=== PATIENT | female | born 1965 | race Caucasian/White ===

== ENCOUNTER → 2017-10-28 | Outpatient (CLI) | payer MEDICARE, OTHER ==
--- NOTE | 2017-10-28 16:11 | XR ---
EXAMINATION TYPE: XR chest 2V DATE OF EXAM: 10/28/2017 COMPARISON: Prior chest 01/17/2010 HISTORY: Preop TECHNIQUE: Frontal and lateral views of the chest are obtained. FINDINGS: There is no focal air space opacity, pleural effusion, or pneumothorax seen. The cardiac silhouette size is within normal limits. There is a mild spinal curvature. Thoracic spondylosis is present. The osseous structures are intact. IMPRESSION: No acute cardiopulmonary process.
== END | disposition home or self-care (01) ==
LOC: RADXRYALE 15:17
PROVIDERS: ATTEND Physician Assistant Medical
DX: Z01.818 Encounter for other preprocedural examination (principal)
CPT/HCPCS: 71046

== ENCOUNTER → 2018-04-15 | Outpatient (CLI) | payer MEDICARE, OTHER ==
--- NOTE | 2018-04-15 21:10 | MR ---
EXAMINATION TYPE: MR brain wo/w con DATE OF EXAM: 04/15/2018 COMPARISON: Prior MRI brain March 18, 2014 HISTORY: White matter changes, MS protocol TECHNIQUE: Multiplanar, multisequence images of the brain and brainstem is performed without and with IV contras t, utilizing 7 mL intravenous Gadavist gadolinium contrast is administered intravenously. Demyelinat ing disease protocol with additional Sagittal Flair sequence performed. FINDINGS: T2 Lesions Present : Yes Approximate Number of Lesions: Few confluent lesions in the saloni axial image 10 and confluent periven tricular parietal lesions axial image 19 Enhancing Lesion(s) Present: No T1 Hypointense Lesion(s) Present: No Change from Prior: Slightly more prominent Diffusion weighted images demonstrate no evidence of a recent infarct or other diffusion abnormality. There is no worrisome extra-axial fluid collection. The ventricular system and cisternal spaces ar e normal in size and appearance. The brain volume is age appropriate. Midline structures demonstrate normal morphology. The craniocervical junction appears within normal limits. Post contrast images demonstrate no abnormal enhancement. The dural venous sinuses appear pa tent. The visualized sinuses are clear and the globes are intact. 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 Some expected interval progression from 2013 MR I noted. No enhancing lesions are seen.
--- NOTE | 2018-04-15 21:17 | MR ---
EXAMINATION TYPE: MR lumbar spine wo con DATE OF EXAM: 04/15/2018 COMPARISON: Prior MRI lumbar spine March 13, 2016 HISTORY: Lumbago per order. Chronic low back pain into bilateral buttocks and thighs since 1984 per p atient. TECHNIQUE: Multiplanar, multisequence imaging of the lumbar spine is performed without IV contrast. FINDINGS: Sagittal images of the lumbar spine show vertebral body heights to remain satisfactory. The re is stable grade 1 retrolisthesis of L3 on L4. There are stable multilevel disc desiccation and mul tilevel disc space narrowing with relative sparing of L1-L2 and L5-S1 levels. Advanced disc space pro rowing L2-L3-L4-L5 levels is redemonstrated and sagittal images. Multilevel posterior disc herniation s involving lower thoracic and lumbar spine sparing the L5-S1 level is redemonstrated on sagittal luis ges.. The conus medullaris remain stable and low in position ending mid L2 level. No abnormal signal is noted. Heterogeneous abdominal aortic type II endplate changes are redemonstrated with moderate m ultilevel anterior spurring. Axial images at T12-L1 level shows mild to moderate broad disc bulge effacing the anterior thecal sac and mild facet degenerative changes and ligament flavum hypertrophy effacing the posterior lateral t hecal sac on axial image 32. Mild bilateral neural foraminal narrowing is redemonstrated. No signific ant change from prior. Axial images at the L1-L2 level show [id number] facet degenerative changes and ligamentum flavu m hypertrophy effacing posterior lateral thecal sac and [id number] broad disc bulge effacing th e anterior thecal sac maximum is 26. There is moderate left and mild right-sided anterior inferior ne ural foraminal narrowing. Encroachment along the anterior inferior left L1 nerve is redemonstrated. Axial images at L2-L3 level show moderate broad-based posterior disc protrusion effacing the anterior thecal sac with mild/moderate facet degenerative changes and ligamentum flavum hypertrophy effacing posterior lateral thecal sac. There is mild to moderate bilateral anterior inferior neural foraminal narrowing with encroachment on left L2 nerve identified sagittal image 4 and axial image 20. No signi ficant change from prior. Axial images at the L3-L4 level show moderate to advanced broad disc bulge effacing anterior thecal s ac with posterior spurring. There are mild facet degenerative changes bilaterally. There is advanced right and mild left-sided neural foraminal narrowing. Encroachment right L3 nerve is felt present. No significant change from prior. Axial images at L4-L5 level show moderate right greater than left facet degenerative changes bilatera lly. There is moderate to advanced broad disc bulge effacing the anterior thecal sac. There is modera te to advanced right-sided inferior neural foraminal narrowing and moderate left-sided inferior neura l foraminal narrowing. Encroachment on right L4 nerve is difficult to exclude. No significant change from prior. Axial images at L5-S1 level show advanced facet degenerative changes bilaterally. Spinal canal is pre served. Bilateral neural foramina are patent. Stable prominence of the extrahepatic biliary duct is noted. IMPRESSION: Multilevel degenerative changes in lumbar spine as detailed above. No significant change or progression from March 23, 2016 MRI study.
== END | disposition home or self-care (01) ==
LOC: RADMRIMAIN 18:05
PROVIDERS: ATTEND Psychiatry & Neurology Neurology
DX: R90.82 White matter disease, unspecified (principal); M47.816 Spondylosis without myelopathy or radiculopathy, lumbar region
CPT/HCPCS: 82565; 84520; 70553; 72148; 36415; A9585

== ENCOUNTER 2018-10-16 06:23 | Inpatient (IN) | payer MEDICARE, OTHER ==
[2018-10-16] MEDS ORDERED: METOCLOPRAMIDE 5 MG/ML 2 ML VIAL IVP STA (07:09)
[2018-10-16] MEDS ORDERED: SODIUM CHLORIDE 0.9% 2,000 ML IV STA (07:09)
[2018-10-16] MEDS ORDERED: HYDROmorphone 1 MG/ML 1 ML SYRINGE IVP STA (07:09)
[2018-10-16] MEDS ORDERED: diphenhydrAMINE 50 MG/ML 1 ML VIAL IVP STA (07:09)
[2018-10-16] MEDS ORDERED: PANTOPRAZOLE 40 MG/10 ML VIAL IVP STA (07:09)
[2018-10-16 07:26] LABS: Basophils # (A) 0.1 k/uL (0-0.2); Basophils % (A) 0 %; Eosinophils # (A) 0.1 k/uL (0-0.7); Eosinophils % (A) 0 %; HGB 15.3 gm/dL (11.4-16.0); Lymphocytes # (A) 1.6 k/uL (1.0-4.8); Lymphocytes % (A) 9 %; MCH 31.8 pg (25.0-35.0); MCHC 33.4 g/dL (31.0-37.0); MCV 95.2 fL (80.0-100.0); Mean Platelet Volume 6.9; Monocytes % (A) 5 %; Neutrophils # (A) 15.6 k/uL (1.3-7.7); Neutrophils % (A) 84 %; Platelet Count 462 k/uL (150-450); RBC 4.83 m/uL (3.80-5.40); RDW 13.2 % (11.5-15.5); WBC 18.7 k/uL (3.8-10.6)
--- NOTE | 2018-10-16 07:30 | ED ---
General Adult HPI - General Source: patient, EMS, RN notes reviewed <Gilberto Raymundo - Last Filed: 10/16/18 08:29> <Jovanny Shea - Last Filed: 10/16/18 08:38> - General Chief complaint: Nausea/Vomiting/Diarrhea Stated complaint: abd pain Time Seen by Provider: 10/16/18 07:03 - History of Present Illness Initial comments: This a 53-year-old female presents emergency department via EMS with chief complaint of abdominal pain. Patient states started last day or so she also has had associated nausea vomiting diarrhea. She states all symptoms preceded her abdominal pain. Patient is concerned that she has a history of diverticulitis with perforation and abscess formation patient states that she had surgery approximate 4 years ago. Patient states that the pain is getting worse with time on alleviated with her morphine she takes orally daily. Patient denies fever does admit to some subjective chills. Patient denies chest pain, shortness breath, headache, dizziness. Patient has no urinary symptoms including dysuria, hematuria or urinary frequency. (Gilberto Raymundo) - Related Data Home Medications Medication Instructions Recorded Confirmed Morphine Sulfate [Morphine Sulfate 30 mg PO BID 01/14/14 10/16/18 ER] Omeprazole [PriLOSEC] 20 mg PO QAM 01/14/14 10/16/18 Sertraline [Zoloft] 100 mg PO HS 05/18/14 10/16/18 Hydrochlorothiazide 25 mg PO QAM 10/31/17 10/16/18 Hyoscyamine Sulfate [Levsin] 0.125 mg SL Q4H PRN 10/31/17 10/16/18 Ondansetron [Zofran] 4 mg PO BID PRN 10/31/17 10/16/18 Morphine Sulfate ER [Ms Contin 15 mg PO BID 11/12/17 10/16/18 15Mg] Allergies Allergy/AdvReac Type Severity Reaction Status Date / Time Sulfa (Sulfonamide Allergy Rash/Hives Verified 10/16/18 07:15 Antibiotics) Review of Systems ROS Other: All systems not noted in ROS Statement are negative. <Gilberto Raymundo - Last Filed: 10/16/18 08:29> ROS Other: All systems not noted in ROS Statement are negative. <Jovanny Shea - Last Filed: 10/16/18 08:38> ROS Statement: Those systems with pertinent positive or pertinent negative responses have been documented in the HPI. Past Medical History Past Medical History: GERD/Reflux, Hyperlipidemia, Hypertension, Musculoskeletal Disorder, Osteoarthritis (OA), Skin Disorder Additional Past Medical History / Comment(s): HX OF RENAL CALCULUS. JERSON CTS. PERFORATED Diverticulitis 08/2014. Spinal Stenosis. SYSTEMIC Lupus. DDD. SORE/WOUND RT KNEE, NEW ONE RT ANKLE. History of Any Multi-Drug Resistant Organisms: None Reported Past Surgical History: Section, Orthopedic Surgery Additional Past Surgical History / Comment(s): C-S X2. RT KNEE ARTHROSCOPY. ABDOMINAL LAPROSCOPY; EMERGENCY BOWEL RESECTION, COLOSTOMY - LATER REVERSED. KIDNEY STONE REMOVAL. COLONOSCOPY. Past Anesthesia/Blood Transfusion Reactions: No Reported Reaction Past Psychological History: Anxiety Smoking Status: Current every day smoker Past Alcohol Use History: None Reported Past Drug Use History: Marijuana - Past Family History Mother Family Medical History: CVA/TIA Additional Family Medical History / Comment(s): BRAIN ANEURYSM <Gilberto Raymundo - Last Filed: 10/16/18 08:29> General Exam General appearance: alert, in no apparent distress Head exam: Present: atraumatic, normocephalic, normal inspection Eye exam: Present: normal appearance, PERRL, EOMI. Absent: scleral icterus, conjunctival injection, periorbital swelling ENT exam: Present: normal exam, mucous membranes moist Neck exam: Present: normal inspection. Absent: tenderness, meningismus, lymphadenopathy Respiratory exam: Present: normal lung sounds bilaterally. Absent: respiratory distress, wheezes, rales, rhonchi, stridor Cardiovascular Exam: Present: regular rate, normal rhythm, normal heart sounds. Absent: systolic murmur, diastolic murmur, rubs, gallop, clicks GI/Abdominal exam: Present: soft, tenderness (Epigastric to mid abdominal tenderness moderate), normal bowel sounds, other (Old surgical scars noted). Absent: distended, guarding, rebound, rigid Back exam: Absent: CVA tenderness (R), CVA tenderness (L) Skin exam: Present: warm, dry, intact, normal color. Absent: rash <Gilberto Raymundo - Last Filed: 10/16/18 08:29> Course <Jovanny Shea - Last Filed: 10/16/18 08:38> Vital Signs 10/16/18 10/16/18 06:25 08:24 Temperature 98.4 F Pulse Rate 46 L 85 Respiratory 16 16 Rate Blood Pressure 144/81 150/83 O2 Sat by Pulse 96 96 Oximetry - Reevaluation(s) Reevaluation #1: 10/16/18 08:35 PA supervision: I proceeded [id number] evaluation the patient she does demonstrate nausea vomiting History of diverticular disease. She does have elevated pancreatic enzymes consistent with pancreatitis. CAT scan was performed evidence of pancreatitis associated the head of the pancreas mass is not ruled out bilateral nono bstructive renal stones also either loosely adherent stool versus pedunculated polyp in the colon at the hepatic flexure. Please see complete report. Patient will be admitted I did discuss the case with Dr. Bell. Review the assessment and plan. (Jovanny Shea) EKG Findings - EKG Comments: EKG Findings:: EKG performed at 8:16 sinus rhythm with multiple PVCs, bigeminy, rate of 98 DE 160 QRS 84 QT /QTC 506/619 <Gilberto Raymundo - Last Filed: 10/16/18 08:29> Medical Decision Making - Lab Data Result diagrams: 10/16/18 06:28 10/16/18 06:28 <Gilberto Raymundo - Last Filed: 10/16/18 08:29> - Lab Data Result diagrams: 10/16/18 06:28 10/16/18 06:28 <Jovanny Shea - Last Filed: 10/16/18 08:38> - Medical Decision Making 53-year-old female present for abdominal pain. Patient lab work, EKG, CT of ab domen and pelvis. Patient has evidence of acute pancreatitis on CT and consistent with glass. She has no history of pancreatitis and she denies any alcohol intake. Patient will be admitted for IV fluid hydration, potassium replacement, pain control and GI consult (Gilberto Raymundo) - Lab Data Lab Results 10/16/18 10/16/18 10/16/18 Range/Units 06:28 06:28 06:28 WBC 18.7 H (3.8-10.6) k/uL RBC 4.83 (3.80-5.40) m/uL Hgb 15.3 (11.4-16.0) gm/dL Hct 46.0 (34.0-46.0) % MCV 95.2 (80.0-100.0) fL MCH 31.8 (25.0-35.0) pg MCHC 33.4 (31.0-37.0) g/dL RDW 13.2 (11.5-15.5) % Plt Count 462 H (150-450) k/uL Neutrophils % 84 % Lymphocytes % 9 % Monocytes % 5 % Eosinophils % 0 % Basophils % 0 % Neutrophils # 15.6 H (1.3-7.7) k/uL Lymphocytes # 1.6 (1.0-4.8) k/uL Monocytes # 1.0 (0-1.0) k/uL Eosinophils # 0.1 (0-0.7) k/uL Basophils # 0.1 (0-0.2) k/uL Sodium 138 (137-145) mmol/L Potassium 2.9 L (3.5-5.1) mmol/L Chloride 94 L (98-107) mmol/L Carbon Dioxide 35 H (22-30) mmol/L Anion Gap 9 mmol/L BUN 11 (7-17) mg/dL Creatinine 0.59 (0.52-1.04) mg/dL Est GFR (CKD-EPI)AfAm >90 (>60 ml/min/1.73 sqM) Est GFR (CKD-EPI)NonAf >90 (>60 ml/min/1.73 sqM) Glucose 105 H (74-99) mg/dL Plasma Lactic Acid Krishna 2.0 (0.7-2.0) mmol/L Calcium 10.6 H (8.4-10.2) mg/dL Total Bilirubin 0.8 (0.2-1.3) mg/dL AST 23 (14-36) U/L ALT 21 (9-52) U/L Alkaline Phosphatase 93 (38-126) U/L Troponin I (0.000-0.034) ng/mL Total Protein 7.1 (6.3-8.2) g/dL Albumin 4.2 (3.5-5.0) g/dL Amylase 213 H (30-110) U/L Lipase 1374 H (23-300) U/L 10/16/18 Range/Units 06:28 WBC (3.8-10.6) k/uL RBC (3.80-5.40) m/uL Hgb (11.4-16.0) gm/dL Hct (34.0-46.0) % MCV (80.0-100.0) fL MCH (25.0-35.0) pg MCHC (31.0-37.0) g/dL RDW (11.5-15.5) % Plt Count (150-450) k/uL Neutrophils % % Lymphocytes % % Monocytes % % Eosinophils % % Basophils % % Neutrophils # (1.3-7.7) k/uL Lymphocytes # (1.0-4.8) k/uL Monocytes # (0-1.0) k/uL Eosinophils # (0-0.7) k/uL Basophils # (0-0.2) k/uL Sodium (137-145) mmol/L Potassium (3.5-5.1) mmol/L Chloride (98-107) mmol/L Carbon Dioxide (22-30) mmol/L Anion Gap mmol/L BUN (7-17) mg/dL Creatinine (0.52-1.04) mg/dL Est GFR (CKD-EPI)AfAm (>60 ml/min/1.73 sqM) Est GFR (CKD-EPI)NonAf (>60 ml/min/1.73 sqM) Glucose (74-99) mg/dL Plasma Lactic Acid Krishna (0.7-2.0) mmol/L Calcium (8.4-10.2) mg/dL Total Bilirubin (0.2-1.3) mg/dL AST (14-36) U/L ALT (9-52) U/L Alkaline Phosphatase (38-126) U/L Troponin I <0.012 (0.000-0.034) ng/mL Total Protein (6.3-8.2) g/dL Albumin (3.5-5.0) g/dL Amylase (30-110) U/L Lipase (23-300) U/L Disposition <Gilberto Raymundo - Last Filed: 10/16/18 08:29> <Jovanny Shea - Last Filed: 10/16/18 08:38> Clinical Impression: Acute pancreatitis, Dehydration, Hypokalemia, Nausea & vomiting Disposition: ADMITTED IP TO THIS [facility] Condition: Fair Referrals: McPhilimy,Gilberto, DO [Primary Care Provider] - 1-2 days
[2018-10-16 07:35] LABS: ALT 21 U/L (9-52); AST 23 U/L (14-36); Albumin 4.2 g/dL (3.5-5.0); Alkaline Phosphatase 93 U/L (38-126); Amylase 213 U/L (30-110); Anion Gap 9 mmol/L; Blood Urea Nitrogen 11 mg/dL (7-17); Calcium 10.6 mg/dL (8.4-10.2); Carbon Dioxide 35 mmol/L (22-30); Chloride 94 mmol/L (98-107); Glucose 105 mg/dL (74-99); Lipase 1374 U/L (23-300); Potassium 2.9 mmol/L (3.5-5.1); Sodium 138 mmol/L (137-145); Total Bilirubin 0.8 mg/dL (0.2-1.3); Total Protein 7.1 g/dL (6.3-8.2)
--- NOTE | 2018-10-16 08:17 | CT ---
EXAMINATION TYPE: CT abdomen pelvis w con DATE OF EXAM: 10/16/2018 COMPARISON: 11/30/2015 HISTORY: 53-year-old female abdominal pain, nausea and vomiting, history of bowel resection TECHNIQUE: Contiguous axial scanning of the abdomen and pelvis following administration of 100 ml Iso samina 300 IV contrast. Delayed images through the kidneys and coronal/sagittal reconstructions perform ed. CT DLP: 583.6 mGycm Automated exposure control for dose reduction was used. FINDINGS: Heart normal size without pericardial effusion. Lung bases clear without pleural effusion. Mildly ectatic lower descending thoracic aorta at 2.6 cm. Moderate atherosclerotic calcification and plaque within the infrarenal abdominal aorta. No focal liver lesion. Similar mild prominence to the bile duct 7 mm as compared to prior exam. Portal venous system is ly nt. Similar thickening of the left adrenal gland without discrete nodularity. A couple 4 mm nonobstructin g right renal calculi and a punctate 2 mm nonobstructive right renal calculus. On the left, a couple nonobstructing 4 mm left renal calculi. Cortical defect along the upper pole vance ggests scarring as a sequela of prior infectious or vascular insult. Spleen within normal limits. There is edematous thickening of the pancreatic head with mild to moderate peripancreatic inflammatio n and edema. No peripancreatic or intrapancreatic fluid collection is seen. Edematous change causes s lightly decreased density of the pancreatic head. No dilated small bowel, free fluid, or free air. Either some loosely adherent stool material or a pedunculated polyp at the level of the hepatic flexu re, axial image 36 and coronal image 26. No significant stool burden and no pericolonic inflammatory change. Bladder partially distended. Left-sided pelvic phleboliths. Uterus and both ovaries are visualized. S uspect a phlebolith associated with the left ovary. No abnormal fluid collection in the pelvis or pel yann lymphadenopathy. Bones: Moderate to advanced degenerative changes throughout the lumbar spine. IMPRESSION: 1. Acute interstitial edematous pancreatitis centered at the pancreatic head with mild to moderate vance rrounding inflammatory edema. No evident complication. However, the edema causes decreased density of the pancreatic head. Following successful treatment and return to baseline, follow-up is recommended to exclude the possibility of an underlying pancreatic head mass. 2. Bilateral nonobstructive renal calculi measuring up to 4 mm. 3. Either some loosely adherent stool versus a pedunculated polyp within the colon at the level of th e hepatic flexure. Direct visualization recommended if routine screening has not started.
[2018-10-16] MEDS ORDERED: NALOXONE 0.4 MG/ML 1 ML VIAL IV PRN (08:31)
[2018-10-16] MEDS ORDERED: HYDROmorphone 0.5 MG/0.5 ML SYRINGE IVP PRN (08:31)
[2018-10-16] MEDS: SODIUM CHLORIDE 0.9% 1,000 ML IV SCH ×2 (09:05→16:08)
[2018-10-16] MEDS: POTASSIUM CHLORIDE 10 MEQ in WATER FOR INJECTION 1 100ML.BAG IVPB SCH ×4 (09:05→12:39)
--- NOTE | 2018-10-16 10:22 | P.CONS ---
History of Present Illness - Reason for Consult Consult date: 10/16/18 Pancreatitis Requesting physician: Anthony Bell - Chief Complaint Abdominal pain - History of Present Illness 53-year-old female with a history of IBS, lupus, shingles, colonic diverticulosis, perforated diverticulitis with resection and ostomy reversal, GERD admitted with intractable nausea vomiting upper abdominal pain intermittently x 1 week without fever chills hematemesis hematochezia or melena. Weight loss On admission patient's pancreatic enzymes were elevated lipase 1374. Amylase 213. LFTs normal. Troponin less than 0.012. No history of pancreatitis. No history of alcoholism. No recent alcohol consumption. No history of known liver or pancreatic disorders. No changes in medications travels or diet. CT abdomen no focal liver lesion. CBD 7 mm. Interstitial edematous pancreatitis centered at the pancreatic head with mild to moderate surrounding inflammatory edema. No evident complication. Pedunculated polyp within the colon at the level of the hepatic flexure direct visualization recommended if routine screening has not started. To her memory last EGD colonoscopy was in 2013 reports as normal. Review of Systems Constitutional: Denies fever, chills, sweats, weight gain, or loss. HEENT: Negative for migraines, blurred vision or loss, earaches, drainage, tinnitus, oral mucosal lesions, dysphagia, or odynophagia. CARDIAC: Negative for chest pain, arrhythmias, or palpitation. RESPIRATORY: Negative for shortness of breath, hemoptysis, cough, or sputum production. GI: See HPI for pertinent findings. : Negative for hematuria, urgency, frequency, polyuria, or dysuria. GYNc: Denies possibility of . Negative vaginal discharge. MUSCULOSKELETAL: Negative for muscle aches, swelling, arthritis, and arthralgias. NEUROLOGIC: Negative for stroke or TIA. ENDOCRINE: Negative for thyroid problems. SKIN: Negative for rash or itching. PSYCHIATRIC: Negative history for depression and anxiety Past Medical History Past Medical History: GERD/Reflux, Hyperlipidemia, Hypertension, Musculoskeletal Disorder, Osteoarthritis (OA), Skin Disorder Additional Past Medical History / Comment(s): Systemic lupus, diverticulitis with perforation/abscess and surgery, gastritis, hemorrhoids, spinal stenosis, severe DDD, chronic back and R knee pain, neuropathy bilateral feet/legs/hands, bilateral carpal tunnel syndrome, nephrolithiasis with surgery, endometriosis, sinus problems History of Any Multi-Drug Resistant Organisms: None Reported Past Surgical History: Adenoidectomy, Section, Orthopedic Surgery, Tonsillectomy Additional Past Surgical History / Comment(s): R knee arthroscopy, R shoulder arthroscopy, abdominal laparoscopy/bowel resection with colostomy later reversed, kidney stone removal, EGD, colonoscopies. Past Anesthesia/Blood Transfusion Reactions: No Reported Reaction Smoking Status: Current every day smoker - Past Family History Mother Family Medical History: CVA/TIA Additional Family Medical History / Comment(s): BRAIN ANEURYSM/hemorrhage. Mother is . Father Family Medical History: Dementia Additional Family Medical History / Comment(s): Father is . Medications and Allergies Home Medications Medication Instructions Recorded Confirmed Type Morphine Sulfate [Morphine Sulfate 30 mg PO BID 01/14/14 10/16/18 History ER] Omeprazole [PriLOSEC] 20 mg PO QAM 01/14/14 10/16/18 History Sertraline [Zoloft] 100 mg PO HS 05/18/14 10/16/18 History Hydrochlorothiazide 25 mg PO QAM 10/31/17 10/16/18 History Hyoscyamine Sulfate [Levsin] 0.125 mg SL Q4H PRN 10/31/17 10/16/18 History Ondansetron [Zofran] 4 mg PO BID PRN 10/31/17 10/16/18 History Morphine Sulfate ER [Ms Contin 15 mg PO BID 11/12/17 10/16/18 History 15Mg] Allergies Allergy/AdvReac Type Severity Reaction Status Date / Time Sulfa (Sulfonamide Allergy Rash/Hives Verified 10/16/18 07:15 Antibiotics) Physical Exam Vitals: Vital Signs Temp Pulse Pulse Resp BP BP Pulse Ox 10/16/18 10:20 97.1 F L 84 20 123/69 95 10/16/18 09:37 82 16 127/78 95 10/16/18 08:24 85 16 150/83 96 10/16/18 06:25 98.4 F 46 L 16 144/81 96 Intake and Output 10/15/18 10/16/18 10/16/18 22:59 06:59 14:59 Other: Weight 68.039 kg General appearance: The patient is alert, oriented, in no acute distress. HET: Head is normocephalic and atraumatic. Pupils are equal and reactive. Oropharynx is clear without lesions. Neck: Supple without lymphadenopathy. Trachea midline. Heart: S1 S2. Regular rate and rhythm. Lungs: No crackles or wheezes are heard. Abdomen: Soft, mild tenderness to the mid epigastrium, nondistended with bowel sounds. No peritoneal signs. No palpable organomegaly or masses. Extremities: Normal skin color and turgor. No cyanosis, rash, ulceration, clubbing, or edema. Radial and pedal pulses are 2/4 bilaterally. Neurological: No focal deficits. Strength and sensation are grossly intact. Results CBC & Chem 7: 10/17/18 08:40 10/17/18 08:40 Labs: Abnormal Lab Results - Last 24 Hours (Table) 10/16/18 10/16/18 Range/Units 06:28 06:28 WBC 18.7 H (3.8-10.6) k/uL Plt Count 462 H (150-450) k/uL Neutrophils # 15.6 H (1.3-7.7) k/uL Potassium 2.9 L (3.5-5.1) mmol/L Chloride 94 L (98-107) mmol/L Carbon Dioxide 35 H (22-30) mmol/L Glucose 105 H (74-99) mg/dL Calcium 10.6 H (8.4-10.2) mg/dL Amylase 213 H (30-110) U/L Lipase 1374 H (23-300) U/L CT scan - abdomen: report reviewed (Dr. Chavez) Assessment and Plan (1) Acute pancreatitis Narrative/Plan: 53-year-old female underlying history of lupus admitted with intractable nausea vomiting upper abdominal pain intermittently over the past week without fever chills hematemesis hematochezia melena or weight loss. CT abdomen and pelvis reported inflammatory changes around the pancreas consistent with acute pancreatitis and underlying pancreatic head mass could not be excluded. Etiology of acute pancreatitis unclear at this time. Additionally pedunculated polyp versus loosely adherent stool within the colon at the level of the hepatic flexure direct visualization recommended if routine screening has not started. Current Visit: Yes Status: Acute Code(s): K85.90 - ACUTE PANCREATITIS WI THOUT NECROSIS OR INFECTION, UNSP SNOMED Code(s): 776203613 Plan: 1. Nothing by mouth except medications ice chips popsicles. Daily monitoring of CBC CMP pancreatic enzymes. Will obtain OLKESH, IgG subclass 1-4, triglycerides, CA-19-9 and CEA requested. Last EGD colonoscopy was in 2013; inpatient versus outpatient screening not planned at this time unless clinical course warrants. 2. IV Protonix 40 mg daily. IV hydration 125 mL an hour. Will follow closely with you. Thank you for this kind referral and the opportunity to participate in the care of your patient. This consultation was discussed with Dr. Chavez. The impression and plan of care have been directed as dictated.
[2018-10-16] MEDS: HYDROmorphone 1 MG/ML 1 ML SYRINGE IVP PRN ×4 (10:29→22:00)
[2018-10-16] MEDS: ONDANSETRON 4 MG/2 ML VIAL IVP PRN ×2 (10:39→20:32)
[2018-10-16 13:05] LABS: Appearance,Urine Clear (Clear); Bilirubin,Urine Negative (Negative); Blood,Urine Negative (Negative); Color,Urine Light Yellow; Glucose,Urine (UA) Negative (Negative); Ketones,Urine Negative (Negative); Leukocyte Esterase,Urine Negative (Negative); Nitrite,Urine Negative (Negative); Protein,Urine Trace (Negative); Urobilinogen,Urine <2.0 mg/dL (<2.0)
[2018-10-16 13:31] LABS: Specific Gravity,Urine >1.050 (1.001-1.035)
--- NOTE | 2018-10-16 14:29 | P.HPIM ---
History of Present Illness 53-year-old female came in with epigastric abdominal pain nausea vomiting multiple episodes patient has elevated lipase patient has severe epigastric abdominal pain I believe patient has much less pain tolerance patient is on Dilaudid at this time. Patient uses MS Contin at home for pain. Appears to have chronic pain issues. Patient denied any alcohol abuse, no gallstones were visualized on the CAT scan. Patient lipase is minimally elevated about 3 times normal LFTs within normal limits. Patient does have hypokalemia mostly secondary to hydrochlorothiazide contribution from nausea vomiting. CAT scan of the abdomen did show edematous pancreatitis. Patient denied any fever chills patient denied any suprapubic pain. Dysuria. Review of Systems REVIEW OF SYSTEMS: CONSTITUTIONAL: No fever, no malaise, no fatigue. HEENT: No recent visual problems or hearing problems. Denied any sore throat. CARDIOVASCULAR: No chest pain, orthopnea, PND, no palpitations, no syncope. PULMONARY: No shortness of breath, no cough, no hemoptysis. GASTROINTESTINAL: As mentioned in HPI NEUROLOGICAL: No headaches, no weakness, no numbness. HEMATOLOGICAL: Denies any bleeding or petechiae. GENITOURINARY: Denies any burning micturition, frequency, or urgency. MUSCULOSKELETAL/RHEUMATOLOGICAL: Denies any joint pain, swelling, or any muscle pain. ENDOCRINE: Denies any polyuria or polydipsia. The rest of the 14-point review of systems is negative. Past Medical History Past Medical History: GERD/Reflux, Hyperlipidemia, Hypertension, Musculoskeletal Disorder, Osteoarthritis (OA), Skin Disorder Additional Past Medical History / Comment(s): Systemic lupus, diverticulitis with perforation/abscess and surgery, gastritis, hemorrhoids, spinal stenosis, severe DDD, chronic back and R knee pain, neuropathy bilateral feet/legs/hands, bilateral carpal tunnel syndrome, nephrolithiasis with surgery, endometriosis, sinus problems History of Any Multi-Drug Resistant Organisms: None Reported Past Surgical History: Adenoidectomy, Section, Orthopedic Surgery, Tonsillectomy Additional Past Surgical History / Comment(s): R knee arthroscopy, R shoulder arthroscopy, abdominal laparoscopy/bowel resection with colostomy later reversed, kidney stone removal, EGD, colonoscopies. Past Anesthesia/Blood Transfusion Reactions: No Reported Reaction Smoking Status: Current every day smoker - Past Family History Mother Family Medical History: CVA/TIA Additional Family Medical History / Comment(s): BRAIN ANEURYSM/hemorrhage. Mother is . Father Family Medical History: Dementia Additional Family Medical History / Comment(s): Father is . Medications and Allergies Home Medications Medication Instructions Recorded Confirmed Type Morphine Sulfate [Morphine Sulfate 30 mg PO BID 01/14/14 10/16/18 History ER] Omeprazole [PriLOSEC] 20 mg PO QAM 01/14/14 10/16/18 History Sertraline [Zoloft] 100 mg PO HS 05/18/14 10/16/18 History Hydrochlorothiazide 25 mg PO QAM 10/31/17 10/16/18 History Hyoscyamine Sulfate [Levsin] 0.125 mg SL Q4H PRN 10/31/17 10/16/18 History Ondansetron [Zofran] 4 mg PO BID PRN 10/31/17 10/16/18 History Morphine Sulfate ER [Ms Contin 15 mg PO BID 11/12/17 10/16/18 History 15Mg] Allergies Allergy/AdvReac Type Severity Reaction Status Date / Time Sulfa (Sulfonamide Allergy Rash/Hives Verified 10/16/18 07:15 Antibiotics) Physical Exam Vitals: Vital Signs Temp Pulse Pulse Resp BP BP Pulse Ox 10/16/18 10:20 97.1 F L 84 20 123/69 95 10/16/18 09:37 82 16 127/78 95 10/16/18 08:24 85 16 150/83 96 10/16/18 06:25 98.4 F 46 L 16 144/81 96 Intake and Output 10/15/18 10/16/18 10/16/18 22:59 06:59 14:59 Other: Voiding Method Toilet Weight 68.039 kg PHYSICAL EXAMINATION: GENERAL: The patient is alert and oriented x3, not in any acute distress. Well developed, well nourished. HEENT: Pupils are round and equally reacting to light. EOMI. No scleral icterus. No conjunctival pallor. Normocephalic, atraumatic. No pharyngeal erythema. No thyromegaly. CARDIOVASCULAR: S1 and S2 present. No murmurs, rubs, or gallops. PULMONARY: Chest is clear to auscultation, no wheezing or crackles. ABDOMEN: Soft, some subjective tenderness and epigastric area nondistended, normoactive bowel sounds. No palpable organomegaly. MUSCULOSKELETAL: No joint swelling or deformity. EXTREMITIES: No cyanosis, clubbing, or pedal edema. NEUROLOGICAL: Gross neurological examination did not reveal any focal deficits. SKIN: No rashes. Results CBC & Chem 7: 10/16/18 06:28 10/16/18 06:28 Labs: Abnormal Lab Results - Last 24 Hours (Table) 10/16/18 10/16/18 10/16/18 Range/Units 06:28 06:28 12:40 WBC 18.7 H (3.8-10.6) k/uL Plt Count 462 H (150-450) k/uL Neutrophils # 15.6 H (1.3-7.7) k/uL Potassium 2.9 L (3.5-5.1) mmol/L Chloride 94 L (98-107) mmol/L Carbon Dioxide 35 H (22-30) mmol/L Glucose 105 H (74-99) mg/dL Calcium 10.6 H (8.4-10.2) mg/dL Amylase 213 H (30-110) U/L Lipase 1374 H (23-300) U/L Ur Specific [place] >1.050 H (1.001-1.035) Urine Protein Trace H (Negative) Thrombosis Risk Factor Assmnt - Choose All That Apply Any of the Below Risk Factors Present?: Yes Each Factor Represents 1 point: Age 41-60 years Other Risk Factors: No Other congenital or acquired thrombophilia - If yes, enter type in comment: No Thrombosis Risk Factor Assessment Total Risk Factor Score: 1 Thrombosis Risk Factor Assessment Level: Low Risk Assessment and Plan Plan: Acute pancreatitis possibly idiopathic, triglyceride level is being obtained as well. Continue with IV fluids patient will remain nothing by mouth -Gastroesophageal reflux disease continue Protonix -Hyperlipidemia Hypertension -History of lupus in the past because of which patient is undergoing autoimmune workup this workup may not be much beneficial here in the hospital -Anxiety and depression -Nicotine abuse: Counseling was provided patient continues to smoke 1.5 pack per day -DVT prophylaxis early ambulation
[2018-10-16 15:25] VITALS: BMI 25.0
[2018-10-16] MEDS: SERTRALINE 100 MG TAB PO SCH (20:27)
[2018-10-17] MEDS: SODIUM CHLORIDE 0.9% 1,000 ML IV SCH ×3 (02:18→16:59)
[2018-10-17] MEDS: HYDROmorphone 1 MG/ML 1 ML SYRINGE IVP PRN ×3 (02:19→12:00)
[2018-10-17] MEDS: ONDANSETRON 4 MG/2 ML VIAL IVP PRN ×2 (04:38→22:24)
[2018-10-17] MEDS ORDERED: PANTOPRAZOLE 40 MG/10 ML VIAL IV SCH (09:00)
[2018-10-17] MEDS ORDERED: HYDROCHLOROTHIAZIDE 25 MG TAB PO SCH (09:00)
[2018-10-17] MEDS ORDERED: NON-FORMULARY DRUG (Omeprazole [Prilosec] 20 MG) PO SCH (09:00)
[2018-10-17 10:03] LABS: HCT 36.8 % (34.0-46.0); MCH 31.2 pg (25.0-35.0); MCHC 32.4 g/dL (31.0-37.0); MCV 96.4 fL (80.0-100.0); Platelet Count 330 k/uL (150-450); RBC 3.82 m/uL (3.80-5.40); RDW 13.9 % (11.5-15.5); WBC 12.6 k/uL (3.8-10.6)
[2018-10-17 10:05] LABS: ALT 22 U/L (9-52); AST 31 U/L (14-36); Albumin 2.9 g/dL (3.5-5.0); Alkaline Phosphatase 69 U/L (38-126); Anion Gap 5 mmol/L; Blood Urea Nitrogen 6 mg/dL (7-17); Calcium 8.8 mg/dL (8.4-10.2); Carbon Dioxide 30 mmol/L (22-30); Chloride 105 mmol/L (98-107); Glucose 77 mg/dL (74-99); Lipase 1852 U/L (23-300); Sodium 140 mmol/L (137-145); Total Bilirubin 0.6 mg/dL (0.2-1.3); Total Protein 5.1 g/dL (6.3-8.2)
[2018-10-17 10:06] LABS: HGB 11.9 gm/dL (11.4-16.0)
[2018-10-17] MEDS ORDERED: Potassium Replacement Protocol 1 EACH MISC MISCELLANE PRN ×2 (11:17→11:18)
[2018-10-17] MEDS ORDERED: POTASSIUM CHLORIDE 10 MEQ in WATER FOR INJECTION 1 100ML.BAG IVPB SCH (11:30)
[2018-10-17] MEDS: POTASSIUM CHLORIDE ER 20 MEQ TAB.ER PO SCH ×2 (11:54→12:47)
[2018-10-17 12:42] LABS: ANA Pattern Speckled
--- NOTE | 2018-10-17 13:42 | P.PN ---
Subjective Progress Note Date: 10/17/18 Principal diagnosis: Pancreatitis LOKESH positive titer 1:80 speckled pattern. Lipase increase 1852 but reports improvement in abdominal pain. LFTs normal. Triglycerides 96. Afebrile. Passing flatus. Objective - Vital Signs Vital signs: Vital Signs Temp 97.9 F 10/17/18 05:00 Pulse 73 10/17/18 05:00 Resp 20 10/17/18 08:00 BP 116/79 10/17/18 05:00 Pulse Ox 95 10/17/18 05:00 Intake & Output 10/16/18 10/17/18 10/17/18 18:59 06:59 18:59 Intake Total 0 Balance 0 Weight 68.039 kg Intake: Oral 0 Other: Voiding Method Toilet Toilet # Voids 1 1 - Exam General appearance: The patient is alert, oriented, in no acute distress. HET: Head is normocephalic and atraumatic. Pupils are equal and reactive. Or opharynx is clear without lesions. Neck: Supple without lymphadenopathy. Trachea midline. Heart: S1 S2. Regular rate and rhythm. Lungs: No crackles or wheezes are heard. Abdomen: Soft, mild tender midepigastric left upper abdomen, nondistended with bowel sounds. No peritoneal signs. No palpable organomegaly or masses. Extremities: Normal skin color and turgor. No cyanosis, rash, ulceration, clubbing, or edema. Radial and pedal pulses are 2/4 bilaterally. Neurological: No focal deficits. Strength and sensation are grossly intact. - Labs CBC & Chem 7: 10/17/18 08:40 10/17/18 08:40 Labs: Abnormal Lab Results - Last 24 Hours (Table) 10/16/18 10/16/18 10/17/18 Range/Units 06:28 12:40 08:40 WBC (3.8-10.6) k/uL Potassium 3.0 L (3.5-5.1) mmol/L BUN 6 L (7-17) mg/dL Total Protein 5.1 L (6.3-8.2) g/dL Albumin 2.9 L (3.5-5.0) g/dL Lipase 1852 H (23-300) U/L Ur Specific [place] >1.050 H (1.001-1.035) LOKESH Screen POSITIVE H (NEGATIVE) 10/17/18 Range/Units 08:40 WBC 12.6 H (3.8-10.6) k/uL Potassium (3.5-5.1) mmol/L BUN (7-17) mg/dL Total Protein (6.3-8.2) g/dL Albumin (3.5-5.0) g/dL Lipase (23-300) U/L Ur Specific [place] (1.001-1.035) LOKESH Screen (NEGATIVE) Assessment and Plan (1) Acute pancreatitis Narrative/Plan: 53-year-old female underlying history of lupus admitted with intractable nausea vomiting upper abdominal pain intermittently over the past week without fever chills hematemesis hematochezia melena or weight loss. CT abdomen and pelvis reported inflammatory changes around the pancreas consistent with acute pancr eatitis and underlying pancreatic head mass could not be excluded. Etiology of acute pancreatitis unclear at this time. Additionally pedunculated polyp versus loosely adherent stool within the colon at the level of the hepatic flexure direct visualization recommended if routine screening has not started. Current Visit: Yes Status: Acute Code(s): K85.90 - ACUTE PANCREATITIS WITHOUT NECROSIS OR INFECTION, UNSP SNOMED Code(s): 378858003 Plan: 1. Low fat diet. Daily monitoring of CBC CMP pancreatic enzymes. CA-19-9 and CEA requested and pending. Last EGD colonoscopy was in 2013; inpatient screening not planned at this time, outpatient screening discussed. Appointment w/ Dr. Braxton 10 days. 2. IV Protonix 40 mg daily. IV hydration 125 mL an hour. Will follow closely with you. Assessment and plan a care discussed with Dr. Chavez
--- NOTE | 2018-10-17 14:06 | P.PN ---
Subjective 53-year-old female was admitted for etiology for the pancreatitis or autoimmune pancreatitis patient's pain is positive although this is a nonspecific test.patient's lipase went up but had abdominal pain nausea improves patient was started on diet advance as tolerated. CA-19-9 is pending patient will undergo endoscopic ultrasound and possibility of pancreatic head as an outpatient. Constitutional: Denied any fatigue denied any fever. Cardio vascular: denied any chest pain, palpitations Gastrointestinal denied any nausea vomiting Pulmonary: Denied any shortness of breath cough Neurologic denied any new focal deficits All inpatient medications were reviewed and appropriate changes in these medications as dictated in the interval history and assessment and plan. Objective - Vital Signs Vital signs: Vital Signs Temp 97.9 F 10/17/18 05:00 Pulse 73 10/17/18 05:00 Resp 20 10/17/18 08:00 BP 116/79 10/17/18 05:00 Pulse Ox 95 10/17/18 05:00 Intake & Output 10/16/18 10/17/18 10/17/18 18:59 06:59 18:59 Intake Total 0 Balance 0 Weight 68.039 kg Intake: Oral 0 Other: Voiding Method Toilet Toilet # Voids 1 1 - Exam PHYSICAL EXAMINATION: GENERAL: The patient is alert and oriented x3, not in any acute distress. Well developed, well nourished. HEENT: Pupils are round and equally reacting to light. EOMI. No scleral icterus. No conjunctival pallor. Normocephalic, atraumatic. No pharyngeal erythema. No thyromegaly. CARDIOVASCULAR: S1 and S2 present. No murmurs, rubs, or gallops. PULMONARY: Chest is clear to auscultation, no wheezing or crackles. ABDOMEN: Soft, nontender, nondistended, normoactive bowel sounds. No palpable organomegaly. MUSCULOSKELETAL: No joint swelling or deformity. EXTREMITIES: No cyanosis, clubbing, or pedal edema. NEUROLOGICAL: Gross neurological examination did not reveal any focal deficits. SKIN: No rashes. - Labs CBC & Chem 7: 10/17/18 08:40 10/17/18 08:40 Labs: Abnormal Lab Results - Last 24 Hours (Table) 10/16/18 10/17/18 10/17/18 Range/Units 06:28 08:40 08:40 WBC 12.6 H (3.8-10.6) k/uL Potassium 3.0 L (3.5-5.1) mmol/L BUN 6 L (7-17) mg/dL Total Protein 5.1 L (6.3-8.2) g/dL Albumin 2.9 L (3.5-5.0) g/dL Lipase 1852 H (23-300) U/L IgG2 106.0 L (169.0-640.0) mg/dL LOKESH Screen POSITIVE H (NEGATIVE) Assessment and Plan Plan: Acute pancreatitis possibly idiopathic,are autoimmune in a positive as mentioned above Continue with IV fluids patient will rwill be started on diet and advance as tolerated -Gastroesophageal reflux disease continue Protonix -Hyperlipidemia Hypertension -History of lupus in the past because of which patient is undergoing autoimmune workup this workup may not be much beneficial here in the hospital -Anxiety and depression -Nicotine abuse: Counseling was provided patient continues to smoke 1.5 pack per day -DVT prophylaxis early ambulation
[2018-10-17] MEDS: HYDROcodone/APAP 7.5-325MG 1 EACH TAB PO PRN ×2 (17:00→22:24)
[2018-10-17] MEDS: SERTRALINE 100 MG TAB PO SCH (20:31)
[2018-10-17] MEDS ORDERED: ALPRAZolam 0.25 MG TAB PO STA (21:37)
[2018-10-17] MEDS: NICOTINE 21MG/24HR PATCH TRANSDERM SCH (21:53)
[2018-10-18] MEDS: SODIUM CHLORIDE 0.9% 1,000 ML IV SCH ×2 (02:00→10:47)
[2018-10-18] MEDS: HYDROcodone/APAP 7.5-325MG 1 EACH TAB PO PRN ×3 (05:07→15:45)
[2018-10-18] MEDS ORDERED: PANTOPRAZOLE 40 MG TABLET PO SCH (07:30)
[2018-10-18 08:13] LABS: Basophils # (A) 0.1 k/uL (0-0.2); Basophils % (A) 1 %; Eosinophils # (A) 0.2 k/uL (0-0.7); Eosinophils % (A) 3 %; HCT 36.1 % (34.0-46.0); Lymphocytes # (A) 1.7 k/uL (1.0-4.8); Lymphocytes % (A) 19 %; MCH 32.2 pg (25.0-35.0); MCHC 33.4 g/dL (31.0-37.0); MCV 96.5 fL (80.0-100.0); Monocytes # (A) 0.5 k/uL (0-1.0); Monocytes % (A) 5 %; Neutrophils # (A) 6.3 k/uL (1.3-7.7); Neutrophils % (A) 70 %; Platelet Count 312 k/uL (150-450); RBC 3.74 m/uL (3.80-5.40); RDW 13.4 % (11.5-15.5)
[2018-10-18 08:26] LABS: Anion Gap 3 mmol/L; Blood Urea Nitrogen 5 mg/dL (7-17); Calcium 8.9 mg/dL (8.4-10.2); Carbon Dioxide 32 mmol/L (22-30); Chloride 105 mmol/L (98-107); Glucose 83 mg/dL (74-99); Lipase 870 U/L (23-300); Potassium 3.1 mmol/L (3.5-5.1); Sodium 140 mmol/L (137-145)
[2018-10-18] MEDS: ONDANSETRON 4 MG/2 ML VIAL IVP PRN (10:09)
[2018-10-18] MEDS: NICOTINE 21MG/24HR PATCH TRANSDERM SCH (10:09)
[2018-10-18] MEDS ORDERED: Potassium Replacement Protocol 1 EACH MISC MISCELLANE PRN ×2 (10:12→14:15)
[2018-10-18] MEDS: POTASSIUM CHLORIDE ER 20 MEQ TAB.ER PO SCH ×4 (10:47→18:28)
[2018-10-18 12:09] VITALS: BP 139/76; PULSE 68; RESP 17; TEMP 98.3
--- NOTE | 2018-10-18 13:28 | PN ---
PROGRESS NOTE DATE OF SERVICE: 10/18/2018 REASON FOR CONSULTATION: Acute pancreatitis. The patient is a 53-year-old pleasant white female admitted to hospital with acute onset of epigastric pain associated with nausea, vomiting of 2 days duration. She was noted to have elevated amylase and lipase consistent with acute pancreatitis. This morning, she is feeling better. The epigastric pain has resolved. She still has decreased appetite. She is on a soft diet, tolerating well. Presently on [place] as needed. Never had prior history of pancreatitis. She did have a CT of the abdomen and pelvis done in the emergency room, which showed changes in the pancreas consistent with acute pancreatitis. PHYSICAL EXAMINATION: On physical examination, she appears comfortable in no apparent distress. Vital signs are stable. Blood pressure is 132/79, pulse rate 68, temperature 98.3. HEENT examination unremarkable. Conjunctivae pink. Sclerae anicteric. Oral cavity no lesions. NECK: No JVD or lymph node enlargement. Chest was clear to auscultation. HEART: Regular rate and rhythm. ABDOMEN: Soft. There was very minimal tenderness in the epigastric area. Bowel sounds are positive. No organomegaly. EXTREMITIES: No pedal edema. SKIN: No rashes. NEUROLOGIC: Alert and oriented x3. No focal deficits. LABS: Labs done at the time of admission to the hospital: Amylase was 213 and lipase is 1374. Today, lipase is down to 870. Serum IgG4 levels are normal. Fasting triglycerides 96. Serum calcium normal. IMPRESSION: Acute pancreatitis, first episode, gradually improving. Etiology remains unclear. CT of the abdomen showed changes in the pancreatic head consistent with acute pancreatitis, possibility of underlying lesion cannot be excluded. She has no history of alcohol abuse. As mentioned above, her serum fasting triglycerides and IgG4 levels are within normal limits. RECOMMENDATIONS: 1. Advance diet as tolerated. 2. Continue with pain medications as needed. 3. The patient was advised to follow up in the office in one to two weeks following discharge from the hospital for further workup including endoscopic ultrasound of the pancreas to investigate the etiology of pancreatitis. The plan was discussed with the patient. She is agreeable to it. Thank you for this consultation. MMODL / IJN: [id number] /
--- NOTE | 2018-10-18 15:11 | P.DS ---
Providers Date of admission: 10/16/18 08:31 Attending physician: Anthony Bell MD Consults: 10/16/18 08:31 Consult Physician Stat Consulting Provider: Jonathon Braxton Consult Reason/Comments: Acute pancreatitis Do you want consulting provider notified?: Yes Primary care physician: Gilberto [facility] Hospital Course: 53-year-old female was admitted for etiology for the pancreatitis or autoimmune pancreatitis patient's pain is positive although this is a nonspecific test.patient's lipase went up but had abdominal pain nausea improves patient was started on diet advance as tolerated. CA-19-9 is pending patient will undergo endoscopic ultrasound and possibility of pancreatic head as an outpatient. 10/18/2018 patient's abdominal pain improved and patient is able to tolerate diet well patient is cleared for discharge from my gastro-oncology perspective. Patient is bit hyponatremic secondary to IV fluids and natriuretic hypokalemia which is expected to improve with disc herniation of IV fluids. On admission patient's potassium was low which is secondary to hydrocodone thiazide which is being discontinued upon discharge. Patient's diarrhea I believe is secondary to not being on hyoscyamine which she was using at home and patient was switched to [place] for morphine which is much stronger than hydrocodone and withdrawal from this morphine is making her to have diarrhea also will obtain C. diff testing that's negative patient will be discharged today. PHYSICAL EXAMINATION: GENERAL: The patient is alert and oriented x3, not in any acute distress. Well developed, well nourished. HEENT: Pupils are round and equally reacting to light. EOMI. No scleral icterus. No conjunctival pallor. Normocephalic, atraumatic. No pharyngeal erythema. No thyromegaly. CARDIOVASCULAR: S1 and S2 present. No murmurs, rubs, or gallops. PULMONARY: Chest is clear to auscultation, no wheezing or crackles. ABDOMEN: Soft, nontender, nondistended, normoactive bowel sounds. No palpable organomegaly. MUSCULOSKELETAL: No joint swelling or deformity. EXTREMITIES: No cyanosis, clubbing, or pedal edema. NEUROLOGICAL: Gross neurological examination did not reveal any focal deficits. SKIN: No rashes. Assessment and Plan Plan: Acute pancreatitis possibly idiopathic,approved Diarrhea secondary to above-mentioned reasons -Gastroesophageal reflux disease continue Protonix -Hyperlipidemia Hypertension -History of lupus in the past -Anxiety and depression -Nicotine abuse: Counseling was provided patient continues to smoke 1.5 pack per day Patient Condition at Discharge: Fair Plan - Discharge Summary Discharge Rx Participant: No New Discharge Prescriptions: Discontinued Hydrochlorothiazide 25 mg PO QAM No Action Omeprazole [PriLOSEC] 20 mg PO QAM Morphine Sulfate [Morphine Sulfate ER] 30 mg PO BID Sertraline [Zoloft] 100 mg PO HS Ondansetron [Zofran] 4 mg PO BID PRN PRN Reason: Nausea Hyoscyamine Sulfate [Levsin] 0.125 mg SL Q4H PRN PRN Reason: Spasms Morphine Sulfate ER [Ms Contin 15Mg] 15 mg PO BID Discharge Medication List Morphine Sulfate [Morphine Sulfate ER] 30 mg PO BID 01/14/14 [History] Omeprazole [PriLOSEC] 20 mg PO QAM 01/14/14 [History] Sertraline [Zoloft] 100 mg PO HS 05/18/14 [History] Hyoscyamine Sulfate [Levsin] 0.125 mg SL Q4H PRN 10/31/17 [History] Ondansetron [Zofran] 4 mg PO BID PRN 10/31/17 [History] Morphine Sulfate ER [Ms Contin 15Mg] 15 mg PO BID 11/12/17 [History] Follow up Appointment(s)/Referral(s): Jonathon Braxton MD [STAFF PHYSICIAN] - 10/30/18 2:15 pm Gilberto Arreguin DO [Primary Care Provider] - 3 Days Patient Instructions/Handouts: Pancreatitis (DC) Activity/Diet/Wound Care/Special Instructions: Regular bland diet. Activity as tolerated, fall precautions. NO smoking, cessation information given. Discharge Disposition: HOME SELF-CARE
== END 2018-10-18 18:30 | disposition home or self-care (01) | DRG 439 ==
LOC: EC 06:23 → 4MS4W 08:31 → 3NMEDONC 10-17 17:09
PROVIDERS: ADMIT Internal Medicine; ATTEND Internal Medicine
DX: K85.00 Idiopathic acute pancreatitis without necrosis or infection (principal); K52.1 Toxic gastroenteritis and colitis; E87.1 Hypo-osmolality and hyponatremia; T40.2X5A Adverse effect of other opioids, initial encounter; E87.6 Hypokalemia; E86.0 Dehydration; E78.5 Hyperlipidemia, unspecified; K21.9 Gastro-esophageal reflux disease without esophagitis; I10 Essential (primary) hypertension; M19.90 Unspecified osteoarthritis, unspecified site; F41.9 Anxiety disorder, unspecified; G89.29 Other chronic pain; M32.9 Systemic lupus erythematosus, unspecified; F32.9 Major depressive disorder, single episode, unspecified; F17.210 Nicotine dependence, cigarettes, uncomplicated; T50.2X5A Adverse effect of carbonic-anhydrase inhibitors, benzothiadiazides and other diuretics, initial encounter; Z88.2 Allergy status to sulfonamides; Z87.442 Personal history of urinary calculi; Z93.3 Colostomy status; Z82.49 Family history of ischemic heart disease and other diseases of the circulatory system; Z98.891 History of uterine scar from previous surgery; Z90.49 Acquired absence of other specified parts of digestive tract; Z87.42 Personal history of other diseases of the female genital tract
CPT/HCPCS: 36415; 74177; 80048; 80053; 81003; 82150; 82378; 82787; 83605; 83690; 83735; 84132; 84478; 84484; 85025; 85027; 86038; 86039; 86301; 93005; 96361; 96365; 96375; 99285

== ENCOUNTER → 2018-12-12 | Outpatient (CLI) | payer MEDICARE, OTHER ==
--- NOTE | 2018-12-12 19:31 | CT ---
EXAMINATION TYPE: CT abdomen w con DATE OF EXAM: 12/12/2018 COMPARISON: 10/16/2018 HISTORY: f/u pancreatitis CT DLP: 623 mGycm Automated exposure control for dose reduction was used. TECHNIQUE: Helical acquisition of images was performed from the lung bases through the top of iliac crest to include entire abdomen. CONTRAST: Performed with Oral Contrast and with IV Contrast, patient injected with 100 mL of Isovue 300. FINDINGS: LUNG BASES: No significant abnormality is appreciated. LIVER/GB: No significant abnormality is appreciated. PANCREAS: No significant abnormality is seen. SPLEEN: No significant abnormality is seen. ADRENALS: No significant abnormality is seen. KIDNEYS: There are 3 less than 5 mm renal calculi in the left and 2 less than 5 mm renal calculi in t he right. No hydronephrosis. Subcentimeter hypodensity involving the right kidney is stable most like ly related to simple cyst. BOWEL: No significant abnormality is seen. LYMPH NODES: No significant abnormality is seen. OSSEOUS STRUCTURES: Hypertrophic and degenerative change of the vertebral column. Severe multilevel degenerative disc disease noted with facet arthropathy. Multilevel foraminal encroachment suspected. Suspect canal stenosis central disc bulge L3-4 and L4-L5. OTHER: Atherosclerotic changes aorta. No evidence of aneurysm. IMPRESSION: INTERVAL RESOLUTION OF FINDINGS COMPATIBLE WITH PREVIOUS PANCREATITIS. BILATERAL NONOBSTRUCTING RENAL CALCULI.
== END | disposition home or self-care (01) ==
LOC: RADCTMAIN 16:59
DX: N20.0 Calculus of kidney (principal)
CPT/HCPCS: 74160; Q9967

== ENCOUNTER 2019-08-12 11:40 | Day surgery (SDC) | payer MEDICARE, OTHER ==
[2019-08-10 13:22] VITALS: BMI 25.2
[~2019-08-12 11:40] MED LIST: LACTATED RINGERS 1,000 ML IV SCH
[2019-08-12 11:59] VITALS: TEMP 98.1
[2019-08-12] MEDS ORDERED: ONDANSETRON 4 MG/2 ML VIAL ONE (12:38)
[2019-08-12] MEDS ORDERED: LIDOCAINE 1% INJ 10MG/ML (20 ML MDV) ONE (12:38)
[2019-08-12] MEDS ORDERED: PROPOFOL 10 MG/ML 20 ML VIAL IV ONE (12:38)
--- NOTE | 2019-08-12 12:52 | P.PCN ---
Date of Procedure: 08/12/19 Procedure(s) Performed: Brief history: Patient is a pleasant scheduled for an elective upper endoscopy as well as colonoscopy as a part of evaluation of chronic persistent nausea, change in bowel habits and abdominal pain for the last several years duration. Procedure performed: Esophagogastroduodenoscopy with biopsy Colonoscopy with snare polypectomy Preoperative diagnosis: Chronic persistent nausea/abdominal pain Change in bowel habits Anesthesia: MAC Procedure: After informed consent was obtained from the patient was brought into the endoscopy unit and IV sedation was administered by anesthesia under continuous monitoring. Initially upper endoscopy was done. The Olympus GF 160 video endos cope was inserted inserted into the mouth and esophagus intubated without any difficulty and was gradually advanced into the stomach and duodenum and carefully examined. Biopsies were done from the second part of the duodenum. The bulb and second part of the duodenum appeared normal. The scope was then withdrawn into the stomach adequately insufflated with air and upon careful examination the antrum had mild gastritis and biopsies were done from this area. Thed body, cardia and fundus appeared normal. The scope was then withdrawn into the esophagus. small sliding hiatal hernia noted The GE junction was located at 40 cm to the incisors. It appeared regular with no erythema erosions or ulcerations. Rest of the esophagus appeared normal. Patient tolerated the procedure well. At this time the patient continued to remain sedation. Initial digital rectal examination was normal. Olympus CF 160 video colonoscope was then inserted into the rectum and gradually advanced to the cecum without any difficulty. Careful examination was performed as the scope was gradually being withdrawn. The prep was excellent. The cecum, appeared normal. In the ascending colon there was a 1 cm polyp that was removed by snare polypectomy. Rest of the ascending colon, transverse colon, descending colon, and rectum appeared normal. there was evidence of sigmoid colectomy with the anastomosis at 20 cm from the anal was there appeared normal. Retroflexion was performed in the rectum and no lesions were noted. Patient tolerated the procedure well. Impression: 1.Upper endoscopy revealed small sliding type hiatal hernia and mild antral gastritis 2.Colonoscopy revealed 1 cm ascending colon polyp status post-polypectomy Recommendations Findings of this examination were discussed with the patient as well as her family. She was advised to follow with the biopsy results. She'll be seen in office in 2 weeks. If the biopsy the colon polyp reveals adenoma she can have a repeat colonoscopy in 3-5 years
[2019-08-12 13:33] VITALS: BP 130/80; PULSE 87; RESP 18
== END 2019-08-12 13:50 | disposition home or self-care (01) ==
LOC: ORWHC2ENDO 11:40
PROVIDERS: ATTEND Internal Medicine Gastroenterology
DX: K31.9 Disease of stomach and duodenum, unspecified (principal); D12.2 Benign neoplasm of ascending colon; K29.70 Gastritis, unspecified, without bleeding; K44.9 Diaphragmatic hernia without obstruction or gangrene; K21.9 Gastro-esophageal reflux disease without esophagitis; K58.9 Irritable bowel syndrome, unspecified; M51.9 Unspecified thoracic, thoracolumbar and lumbosacral intervertebral disc disorder; M19.90 Unspecified osteoarthritis, unspecified site; M32.9 Systemic lupus erythematosus, unspecified; Z98.0 Intestinal bypass and anastomosis status; K57.90 Diverticulosis of intestine, part unspecified, without perforation or abscess without bleeding; Z88.2 Allergy status to sulfonamides; Z97.2 Presence of dental prosthetic device (complete) (partial); Z87.442 Personal history of urinary calculi; Z79.899 Other long term (current) drug therapy; Z79.891 Long term (current) use of opiate analgesic; Z79.82 Long term (current) use of aspirin
CPT/HCPCS: 88305; 45385; 43239; J2405; J2001; J2704

== ENCOUNTER → 2020-01-15 | Outpatient (CLI) | payer MEDICARE, OTHER | END | disposition home or self-care (01) | LOC: LABWHC1 12:40 | PROVIDERS: ATTEND Orthopaedic Surgery | DX: Z01.812 Encounter for preprocedural laboratory examination (principal) | CPT/HCPCS: 87070 ==

== ENCOUNTER → 2020-01-15 | Outpatient (CLI) | payer MEDICARE, OTHER ==
--- NOTE | 2020-01-15 12:46 | XR ---
EXAMINATION TYPE: XR chest 2V DATE OF EXAM: 01/15/2020 COMPARISON: 10/28/2017 TECHNIQUE: PA and lateral views submitted. HISTORY: Preop FINDINGS: The lungs are clear and there is no pneumothorax, pleural effusion, or focal pneumonia. Hypertrophi c and degenerative change spine. IMPRESSION: 1. No acute process.
== END | disposition home or self-care (01) ==
LOC: RADXRMAIN 12:24
PROVIDERS: ATTEND Family Medicine
DX: Z01.811 Encounter for preprocedural respiratory examination (principal); F17.210 Nicotine dependence, cigarettes, uncomplicated
CPT/HCPCS: 71046

== ENCOUNTER 2020-01-19 06:21 | Day surgery (SDC) | payer MEDICARE, OTHER ==
[2020-01-13 11:44] VITALS: BMI 25.0
--- NOTE | 2020-01-18 12:21 | HP ---
HISTORY AND PHYSICAL CHIEF COMPLAINT: Right knee pain. HISTORY OF PRESENT ILLNESS: Patient is a 54-year-old female on disability, who presents with progressive right knee pain secondary to osteoarthrosis, worsening over the past several years. She notes soreness and stiffness. She has had a difficult time with weightbearing activities. She has tried previous injections along with medications without much relief. She had a previous knee arthroscopy. PAST MEDICAL HISTORY: Significant for arthritis, reflux disease, neuropathy, lupus, depression. PAST SURGICAL HISTORY: Significant for section, lithotripsy, and right knee arthroscopy. CURRENT MEDICATIONS: Prilosec, baclofen, morphine, [place], Plaquenil, Zofran, Zoloft. ALLERGIES: SULFA and KETORALAC. FAMILY HISTORY: Significant for cancer and Alzheimer's. SOCIAL HISTORY: Significant for 1 pack per day tobacco use. 16 POINT REVIEW OF SYSTEMS: Otherwise reviewed and is noncontributory. PHYSICAL EXAMINATION: On examination, the patient is approximately 5 foot 6, 150 pounds of mesomorphic habitus. HEENT: Exam is nonfocal. Neck is supple. She has painless passive motion of the right hip. Straight leg raise is negative. Active motion right knee -14 to 120 degrees of flexion. She has a large effusion. She is tender about the medial joint line. Collaterals are stable, Deon is negative, Rani's is equivocal. Her distal neurovascular exam appears intact in the right lower extremity. Previous x-rays of the right knee obtained in the office show severe tricompartmental osteoarthrosis with a possible ossific posterior loose body. IMPRESSION: 1. Right knee severe tricompartmental osteoarthrosis. 2. Lupus. 3. History of chronic back problems, on long-term narcotic treatment. RECOMMENDATIONS: I talked to the patient at length regarding her condition and treatment options. At this point, she is quite symptomatic despite extensive previous conservative measures. After thorough discussion, she opts to proceed with surgery. Will plan to proceed with right total knee arthroplasty. We will institute DVT prophylaxis postoperatively. Risks and benefits were discussed at length in layman's terms. The patient underwent preoperative medical evaluation by Dr. Arreguin. MAYDA / JOVANIN: [id number] /
[~2020-01-19 06:21] MED LIST changes: +ACETAMINOPHEN TAB 500 MG TAB PO ONE; +DEXAMETHASONE SOD PHOSPHATE 10 MG/ML 1 ML VIAL IV ONE; +HYDROmorphone 0.5 MG/0.5 ML SYRINGE IVP PRN; -LACTATED RINGERS 1,000 ML IV SCH; +LIDOCAINE 1% (10MG/ML) FOR IV START INTRADERMA PRN; +MELOXICAM 7.5 MG TAB PO ONE; +MIDAZOLAM 2 MG/2 ML VIAL IV PRN; +TRANEXAMIC ACID 1,000 MG in SODIUM CHLORIDE 0.9% 100 ML IVPB ONE; +fentaNYL (PF) 50 MCG/ML 2 ML AMP IVP PRN
[2020-01-19] MEDS ORDERED: ACETAMINOPHEN TAB 500 MG TAB ONE (06:39)
[2020-01-19] MEDS: LACTATED RINGERS 1,000 ML IV SCH ×2 (06:50→20:12)
[2020-01-19] MEDS ORDERED: PROPOFOL 10 MG/ML 20 ML VIAL IV ONE (07:55)
[2020-01-19] MEDS ORDERED: MIDAZOLAM 2 MG/2 ML VIAL ONE (07:55)
[2020-01-19] MEDS ORDERED: TRANEXAMIC ACID 1,000 MG/10 ML VIAL ONE (07:55)
[2020-01-19] MEDS ORDERED: SODIUM CHLORIDE 0.9% 100 ML BAG ONE (07:55)
[2020-01-19] MEDS ORDERED: ROPIVACAINE 246.25 MG, EPINEPHrine 0.5 MG, KETOROLAC 30 MG, cloNIDine HCL/PF 80 MCG, WA... MISCELLANE ONE ×5 (08:27)
[2020-01-19] MEDS ORDERED: ceFAZolin 3,000 MG in SODIUM CHLORIDE 0.9% IRRIGATIO 3,000 ML IRRIGATION ONE (08:32)
[2020-01-19] MEDS ORDERED: HYDROcodone/APAP 10-325MG 1 EACH TAB PO PRN (09:36)
[2020-01-19] MEDS ORDERED: HYDROmorphone 0.5 MG/0.5 ML SYRINGE IVP PRN (09:36)
[2020-01-19] MEDS ORDERED: HYDROmorphone 1 MG/ML 1 ML SYRINGE IVP PRN (09:36)
[2020-01-19] MEDS ORDERED: ONDANSETRON 4 MG/2 ML VIAL IVP PRN (09:36)
[2020-01-19] MEDS ORDERED: ACETAMINOPHEN TAB 325 MG TAB PO PRN (09:36)
[2020-01-19] MEDS ORDERED: MAGNESIUM HYDROXIDE 2,400 MG/10 ML CUP PO PRN (09:36)
[2020-01-19] MEDS ORDERED: traMADol 50 MG TAB PO PRN (09:36)
[2020-01-19] MEDS ORDERED: NALOXONE 0.4 MG/ML 1 ML VIAL IV PRN (09:36)
--- NOTE | 2020-01-19 10:10 | P.OP ---
Date of Procedure: 01/19/20 Preoperative Diagnosis: Right knee severe tricompartmental osteoarthrosis Postoperative Diagnosis: Same Procedure(s) Performed: Right total knee arthroplastycementedcruciate retaining Implants: Depuy Attune size 6 cemented femoral component, size 5 cemented tibial component, 9 mm articular surface, 35 mm cemented patellar component. This is a cruciate retaining implant. Anesthesia: regional, local, spinal Surgeon: Raul Naqvi Information Technology Director #1: Daryl Ley Estimated Blood Loss (ml): 50 Pathology: other (Bone fragments) Condition: stable Disposition: PACU Indications for Procedure: The patient is a 54-year-old female who presents with progressive right knee pain secondary to osteoarthrosis despite conservative measures. A discussion of the risks and benefits of operative intervention versus continued conservative measures was made with patient. She opted to proceed with surgery. Operative risks to include infection, neurovascular injury, development of blood clots, possible component loosening, possible component failure need for subsequent procedures was discussed. Informed consent was obtained. Operative Findings: As below Description of Procedure: The patient was brought to the operating room, and after induction of spinal anesthesia the right lower extremity was prepped and draped in a normal fashion. The tourniquet was inflated to 270 mmHg. A longitudinal incision extending 3 finger breaths above the superior pole of the patella extending to the medial aspect the tibial tubercle was then made. The skin and subcutaneous tissues were divided sharply. Electrocautery was used for hemostasis. A medial parapatellar arthrotomy was then performed. The medial soft tissues to include the superficial and deep portions of the medial collateral ligament as well as the medial hamstring tendons were elevated subperiosteally. The proximal medial tibia osteophytes were carefully removed. The patella was everted. The knee was flexed. A portion of the retropatellar fat pad was excised sharply. The anterior cruciate ligament was sacrificed. A starting hole was made in the distal femur 1 cm anterior to the posterior cruciate origin. An intramedullary femoral guide was gently inserted planning on 5 valgus distal cut with 9 mm distal resection. The cutting block was pinned in place. The distal cut was then made. The posterior referencing sizing guide was utilized. 3 of external rotation was built into the system and verified off the trans- epicondylar axis and the posterior condyles. I felt size 6 was most approp riate. The cutting block was pinned in place. The anterior, posterior, and chamfer cuts were then made. The bone fragments were removed. A sulcus cut was then made with the appropriate guide. The trial size 6 femoral component was then placed and was fully seated. There was good anterior to posterior and medial to lateral fit. The distal peg holes were then drilled. The trial component was then removed. Attention was then paid towards preparing the proximal tibia. An extra medullary guide was utilized in line with the tibial shaft and second metatarsal distally. A 7 posterior slope was planned. I planned on 2 mm resection from the medial compartment. The cutting block was pinned in place. The proximal tibial cut was then made. The bone was removed in one fragment. The remnants of the medial and lateral menisci were excised the capsule junction with electrocautery. The tibia sized most appropriately at size 5. The posterior osteophytes off the distal femur were carefully removed with a curved osteotome. The trial tibial and femoral components were placed along with a 9 millimeters articular surface. I was able to obtain full flexion and extension with good stability with varus and valgus stress. After several flexion and extension cycles, the tibial rotation was marked with electrocautery in line with the medial one third of the tibial tubercle. Attention was then paid towards preparing the patella. A patella reamer was utilized taking this down to 14 mm of bone stock. A good flush cut was made. The patella sized most appropriately at 35 millimeters. The peg holes were then drilled. The trial component was placed. The knee was taken through a range of motion. I had good patellofemoral tracking with no hands technique. The trial components were then removed. The tibia was prepared in the appropriate rotation with appropriate drill and keel punch. The flexion and extension gaps were checked and felt to be symmetric. The posterior soft tissues were injected with ropivacaine. The bony surfaces were prepared with pulsatile lavage and dried. The deep tibial component was then cemented in place and was fully seated. Excess cement was removed. The femoral component was cemented in place and was fully seated. Again excess cement was removed. The trial 9 millimeters surface was then inserted in the knee was put in full extension. The patella component was cemented in place. After the cement had sufficiently hardened, the knee was again taken through a range of motion. Again there was good stability in flexion and extension with varus and valgus stress. The trial articular surface was then removed. The final articular surface was placed and was impacted. Care was taken to avoid any soft tissue interposition. Pulsatile lavage was again utilized. The tourniquet was deflated with approximately 60 minutes total tourniquet time. There was minimal drainage therefore a deep drain was not placed. The medial parapatellar arthrotomy was then closed with #2 Ethibond suture. The subcutaneous tissues were reapproximated interrupted 2-0 Vicryl sutures. The skin was reapproximated with 3-0 subarticular strata fix suture. Skin tape and adhesive was applied. A sterile dressing was applied. The patient was then awoken from sedation and transferred to recovery room in good condition. Blood loss was estimated at 50 milliliters. No complications were incurred. Sponge and needle counts were correct at the end the case. Julio C DILLARD assisted during the major components this case to include exposure, bone resection, and implantation.
[2020-01-19] MEDS ORDERED: ONDANSETRON 4 MG/2 ML VIAL IVP ONE (10:13)
[2020-01-19] MEDS ORDERED: ROPIVACAINE 0.2%-NS ON-Q PUMP 1,090 MG, EMPTY PAIN BALL 1 EACH MISCELLANE PRN (10:15)
--- NOTE | 2020-01-19 10:17 | P.ANPRN ---
Procedure Note - Anesthesia - Nerve Block Performed Right Adductor Canal Infusion Time Out Performed: Yes Date of Procedure: 01/19/20 Procedure Start Time: : Procedure Stop Time: Location of Patient: PreOp Indication: Acute Post-Operative Pain, Requested by Surgeon Sedation Type: Sedate with meaningful contact maintained Preparation: Sterile Prep, Sterile Dressing Position: Supine Catheter: Indwelling Needle Types: Pajunk Needle Gauge: 21 Ultrasound used to visualize needle placement: Yes Ultrasound used to observe medication spread: Yes Blood Aspirated: No Pain Paresthesia on Injection Noted: No Resistance on Injection: Normal Image Stored and Saved: Yes Events: Uneventful and Well Tolerated (ropi .5% 20cc plus dexamethasone 4mg)
[2020-01-19] MEDS ORDERED: METOCLOPRAMIDE 5 MG/ML 2 ML VIAL IVP ONE (10:30)
--- NOTE | 2020-01-19 10:42 | XR ---
EXAMINATION TYPE: XR knee limited RT DATE OF EXAM: 01/19/2020 COMPARISON: NONE TECHNIQUE: Two views submitted HISTORY: Post op FINDINGS: There is a prosthetic knee in near anatomic alignment. There is soft tissue edema and emphysema. Va scular calcifications noted. IMPRESSION: 1. Postoperative change. Appears in near-anatomic alignment
[2020-01-19] MEDS ORDERED: diphenhydrAMINE 50 MG/ML 1 ML VIAL IVP ONE (10:45)
[2020-01-19] MEDS ORDERED: HYDROmorphone 0.5 MG/0.5 ML SYRINGE IVP ONE (11:41)
[2020-01-19] MEDS ORDERED: SERTRALINE 50 MG TAB PO SCH (21:00)
[2020-01-19] MEDS ORDERED: SENNOSIDES-DOCUSATE SODIUM 1 EACH TAB PO SCH (21:00)
[2020-01-19] MEDS: ENOXAPARIN 30 MG/0.3 ML SYRINGE SQ SCH (21:29)
[2020-01-19] MEDS: PANTOPRAZOLE 40 MG TABLET PO SCH (21:29)
[2020-01-19] MEDS: HYDROXYCHLOROQUINE SULFATE 200 MG TAB PO SCH (21:29)
--- NOTE | 2020-01-19 23:46 | P.CONS ---
History of Present Illness - Reason for Consult Consult date: 01/19/20 medical management - Chief Complaint Elective right total knee arthroplasty - History of Present Illness Patient is a 54-year-old female with a known history of SLE, history of diverticulitis with perforation/abscess, hemorrhoids, spinal stenosis, severe degenerative disc disease, GERD, bilateral peripheral neuropathy nondiabetic, history of pancreatitis, optic neuritis and currently everyday smoker was admitted to the hospital for elective right knee arthroplasty due to severe tricompartmental osteoarthrosis. Patient tolerated the procedure very well. Currently denied any complaints of chest pain or shortness of breath. Postoperatively blood pressure was 167/63 pulse is 70 respiration 18 pulse ox 100% on 2 L nasal cannula. Review of Systems Constitutional: Patient denies any fever or chills . No generalized weakness or weight loss. Abdomen: Patient denied nausea vomiting and diarrhea and abdominal pain. Cardiovascular: Patient denies any chest pain or short of breath no palpitations. Respiratory: patient denied any cough is from production. No shortness of breath Neurologic: Patient denied any numbness or tingling headache. Musculoskeletal: Patient denies any complaints of joint swelling or deformity. Skin: Negative Psychiatric: Negative Endocrine: No heat or cold intolerance. No recent weight gain. Genitourinary: No dysuria or hematuria. All other 14 point ROS negative except the above Past Medical History Past Medical History: Eye Disorder, GERD/Reflux, Musculoskeletal Disorder, Osteoarthritis (OA) Additional Past Medical History / Comment(s): Systemic lupus, hx Diverticulitis w/ perforation/abscess, Gastritis, Hemorrhoids, Spinal Stenosis, severe DDD, chronic back and right knee pain, neuropathy bilateral feet/legs/hands, bilateral Carpal Tunnel Syndrome, hx kidney stones, Pancreatitis, endometriosis, sinus problems, optic neuritis. History of Any Multi-Drug Resistant Organisms: None Reported Past Surgical History: Adenoidectomy, Bowel Resection, Section, Orthopedic Surgery, Tonsillectomy Additional Past Surgical History / Comment(s): Right knee arthroscopy, abdominal laparoscopy/bowel resection with colostomy -later reversed, kidney stone removal, EGD, colonoscopies. Past Anesthesia/Blood Transfusion Reactions: No Reported Reaction Past Psychological History: Anxiety, Depression Additional Psychological History / Comment(s): in past stated lately her depression has been increased d/t health problems but denies any thoughts/plans of suicide. Smoking Status: Current every day smoker Past Alcohol Use History: None Reported Additional Past Alcohol Use History / Comment(s): Pt started smoking in 1980, 1.5 ppd smoker. Past Drug Use History: Marijuana Additional Drug Use History / Comment(s): Pt has medical marijuana she uses for appetite daily. She uses it as an edible-small amount daily. Aware no use 24 hrs prior to procedure. - Past Family History Mother Family Medical History: CVA/TIA Additional Family Medical History / Comment(s): BRAIN ANEURYSM/hemorrhage. Mother is . Father Family Medical History: Dementia Additional Family Medical History / Comment(s): Father is . Medications and Allergies Home Medications Medication Instructions Recorded Confirmed Type Omeprazole [PriLOSEC] 20 mg PO BID 01/14/14 01/19/20 History Sertraline [Zoloft] 125 mg PO HS 05/18/14 01/19/20 History Hyoscyamine Sulfate [Levsin] 0.125 mg SL Q4H PRN 10/31/17 01/19/20 History Ondansetron [Zofran] 4 mg PO BID PRN 10/31/17 01/19/20 History Morphine Sulfate ER [Ms Contin 30 mg PO BID 11/12/17 01/19/20 History 15Mg] HYDROcodone/APAP 10-325MG [[place] 1 tab PO BID PRN 03/24/19 01/19/20 History 10-325] Hydroxychloroquine Sulfate 200 mg PO BID 03/24/19 01/19/20 History [Plaquenil] Aspirin/Acetaminophen/Caffeine 1 each PO DIRECTED PRN 06/22/19 01/19/20 History [Excedrin Extra Strength Caplet] Baclofen [Lioresal] 20 mg PO BID PRN 06/22/19 01/19/20 History Cholecalciferol (Vitamin D3) 2,000 unit PO HS 06/22/19 01/19/20 History [Vitamin D3] Vitamin E (Dl,Tocopheryl Acet) 400 unit PO DAILY 06/22/19 01/19/20 History [Vitamin E] Ascorbic Acid [Vitamin C] 1,000 mg PO DAILY 08/10/19 01/19/20 History Biotin 5,000 mcg PO HS 08/10/19 01/19/20 History Allergies Allergy/AdvReac Type Severity Reaction Status Date / Time Sulfa (Sulfonamide Allergy Rash/Hives Verified 01/19/20 06:52 Antibiotics) Physical Exam Vitals: Vital Signs Temp Pulse Resp BP Pulse Ox 01/19/20 14:52 99.1 F 79 18 148/82 94 L 01/19/20 14:00 72 14 124/66 100 01/19/20 13:00 76 14 126/68 100 01/19/20 12:30 75 14 131/69 100 01/19/20 12:00 72 14 125/67 100 01/19/20 11:45 73 14 133/76 100 01/19/20 11:30 70 18 167/63 100 01/19/20 11:00 72 18 135/76 100 01/19/20 10:46 68 18 142/79 100 01/19/20 10:30 68 18 124/67 100 01/19/20 10:15 69 18 116/66 100 01/19/20 10:03 97.1 F L 76 18 112/67 94 L 01/19/20 06:49 97 F L 83 16 193/74 95 Intake and Output 01/19/20 01/19/20 01/19/20 06:59 14:59 22:59 Intake Total 400 651 Output Total 50 Balance 400 601 Intake: IV 400 651 Output: Estimated Blood Loss 50 Other: Voiding Method Toilet Weight 67.9 kg 67.9 kg PHYSICAL EXAMINATION: Patient is lying in the bed comfortably, no acute distress, awake alert and oriented.. HEENT: Normocephalic. Neck is supple. Pupils reactive. Nostrils clear. Oral cavity is moist. Ears reveal no drainage. Neck reveals no JVD, carotid bruits, or thyromegaly. CHEST EXAMINATION: Trachea is central. Symmetrical expansion. Lung wolfe clear to auscultation and percussion. CARDIAC: Normal S1, S2 with no gallops. No murmurs ABDOMEN: Soft. Bowel sounds normal. No organomegaly. No abdominal bruits. Extremities: reveal no edema. No clubbing or cyanosis Neurologically awake, alert, oriented x3 with well-coordinated movements. No focal deficits noted Skin: No rash or skin lesions. Psychiatric: Coperative. Nonsuicidal Musculoskeletal: No joint swelling or deformity. Normal range of motion.Right knee surgical site is intact. No leg swelling. Assessment and Plan Assessment: Right total knee arthroplasty due to severe osteoarthrosis. Postoperative day 0 SLE currently Plaquenil at home GERD Osteoarthritis History of diverticulitis with perforation/abscess Severe degenerative disc disease Chronic back pain and right knee pain Bilateral feet, legs and hands neuropathy. Nondiabetic. History of optic neuritis History of pancreatitis History of renal stones Anxiety/depression Currently everyday smoker Daily marijuana use for appetite as per patient. Plan: Patient will be continued on pain management, bowel regimen. Encourage incentive spirometry and ambulation. Continue to monitor H&H. Continue with home medications and follow-up closely. Further recommendations based on the clinical course. Smoking cessation has been counseled extensively. Thank you for your consult. Time with Patient: Greater than 30
[2020-01-20 02:19] VITALS: TEMP 98.1
[2020-01-20] MEDS: HYDROcodone/APAP 10-325MG 1 EACH TAB PO PRN ×2 (05:43→11:06)
[2020-01-20] MEDS: LACTATED RINGERS 1,000 ML IV SCH (05:44)
[2020-01-20] MEDS: PANTOPRAZOLE 40 MG TABLET PO SCH (08:38)
[2020-01-20] MEDS: HYDROXYCHLOROQUINE SULFATE 200 MG TAB PO SCH (08:38)
[2020-01-20] MEDS: ENOXAPARIN 30 MG/0.3 ML SYRINGE SQ SCH (08:53)
[2020-01-20] MEDS ORDERED: ASCORBIC ACID 500 MG TAB PO SCH (09:00)
[2020-01-20] MEDS ORDERED: MELOXICAM 7.5 MG TAB PO SCH (09:00)
[2020-01-20 09:05] VITALS: BP 107/66; PULSE 86; RESP 18
[2020-01-20 09:46] LABS: Basophils % (A) 0 %; Eosinophils % (A) 0 %; HCT 35.3 % (34.0-46.0); HGB 11.3 gm/dL (11.4-16.0); Lymphocytes # (A) 1.6 k/uL (1.0-4.8); Lymphocytes % (A) 11 %; MCH 31.6 pg (25.0-35.0); MCHC 32.1 g/dL (31.0-37.0); MCV 98.4 fL (80.0-100.0); Mean Platelet Volume 6.9; Monocytes # (A) 1.3 k/uL (0-1.0); Monocytes % (A) 8 %; Neutrophils # (A) 12.2 k/uL (1.3-7.7); Neutrophils % (A) 79 %; Platelet Count 385 k/uL (150-450); RBC 3.59 m/uL (3.80-5.40); RDW 12.9 % (11.5-15.5); WBC 15.4 k/uL (3.8-10.6)
--- NOTE | 2020-01-20 11:28 | P.PN ---
Subjective Progress Note Date: 01/20/20 Principal diagnosis: Status post right total knee arthroplasty Patient evaluated of visit, she is resting comfortably. She denies any nausea or vomiting. She denies any chest pain or shortness of breath. She is done well with physical therapy. Objective - Vital Signs Vital signs: Vital Signs Temp 98.1 F 01/20/20 07:00 Pulse 86 01/20/20 08:00 Resp 18 01/20/20 08:00 BP 107/66 01/20/20 07:00 Pulse Ox 98 01/20/20 07:00 Intake & Output 01/19/20 01/20/20 01/20/20 18:59 06:59 18:59 Intake Total 651 Output Total 50 Balance 601 Weight 67.9 kg Intake: IV 651 Output: Estimated Blood Loss 50 Other: Voiding Method Toilet Toilet Toilet # Voids 3 - Exam Right lower extremity: Incision is clean, dry, and intact. The exofin fusion tape is in good condition. There is minimal soft tissue swelling and ecchymosis surrounding the medial and lateral aspects of the incision. Calf is soft, no tenderness with palpation. Plantar flexion, dorsiflexion, EHL, FHL are intact. Sensory exam to light touch throughout the extremity is intact, dorsal pedis pulses 2+. - Labs CBC & Chem 7: 01/20/20 08:48 Labs: Abnormal Lab Results - Last 24 Hours (Table) 01/20/20 Range/Units 08:48 WBC 15.4 H (3.8-10.6) k/uL RBC 3.59 L (3.80-5.40) m/uL Hgb 11.3 L (11.4-16.0) gm/dL Neutrophils # 12.2 H (1.3-7.7) k/uL Monocytes # 1.3 H (0-1.0) k/uL Assessment and Plan Assessment: Status post right total knee arthroplasty Plan: Pain control, she will resume her normally prescribe narcotic medication GI and DVT prophylaxis, aspirin 81 mg twice a day Wound care instructions discussed Icing and elevating techniques discuss Medical recommendations Plan for discharge home today Time with Patient: Less than 30
--- NOTE | 2020-01-20 11:29 | P.DS ---
Providers Date of admission: 01/19/2020 Expected date of discharge: 01/20/20 Attending physician: Raul Naqvi Consults: 01/19/20 09:36 Consult Physician Routine Consulting Provider: Gilberto Arreguin Consult Reason/Comments: medical management Do you want consulting provider notified?: Yes Primary care physician: Gilberto Arreguin [facility] Course: Date of admission: 01/19/2020 Date of discharge: 01/20/2020 Admission diagnosis: Status post right total knee arthroplasty Discharge diagnosis: Same Attending physician: Dr. Benedict Surgical procedures: Right total knee arthroplasty Brief history: Patient is a 54-year-old female with a history of progressive primary right knee osteoarthritis. At this point patient has failed conservative treatment measures and has opted to proceed with a elective right total knee arthroplasty. Hospital course: Details of patient's surgery can be found in operative report. Patient tolerated the procedure well and was subsequently transported to orthopedic floor. Patient's orthopeidc and medical care was provided daily. Patient had daily laboratory tests performed for evaluation of overall blood counts. Patient had daily physical therapy to include strengthening range of motion as well as education with walker ambulation. Patient was treated with Lovenox for their postoperative DVT prophylaxis during their inpatient stay. Patient was noted to have a relatively uneventful postoperative course. Patient reported satisfactory pain control with oral pain medications by postoperative day 0. Patient showed satisfactory progress with physical therapy. Patient moved steadily through the program and had no difficulty meeting the goals by postoperative day 1. Given patient's otherwise satisfactory course and having met physical therapy goals, plan is to discharge patient home on postoperative day 1. Discharge condition/disposition: Patient will be discharged home in stable condition. Discharge medications: Instructions are given on resumption of patient's normal daily medications per primary care recommendation, in addition patient will be prescribed aspirin 81 mg. Discharge instructions: 1. Wound care and infection precautions, keep incision dry and covered while showering, no lotions, creams, moisturizers. No soaking, tubs, pools, hottubs. Do not scrub over the incision. 2. Weight-bear as tolerated with walker / cane until follow-up. 3. Ice and elevate when necessary. Do not exceed 20 minutes per hour with ice pack. 4. Utilize compression sleeve until seen at first follow up appointment. 5. Visiting nursing care. 6. Home physical therapy including home CPM. 7. Pain meds and anticoagulants per prescription. 8. Pain medication has potential to cause constipation. Increase oral fluid and fiber intake. Contact primary care provider if you have not had a bowel movement within 48 hours after discharge 9. No anti-inflammatory medication until discussed at first post operative visit, this including Motrin, Aleve, Mobic, Diclofenac. 10. Follow up in office at 2 weeks postop with Julio C Ley PA-C 11. Follow up with your primary care doctor 7-10 days after discharge. 12. Contact [facility] with any questions, . Procedures: Right total knee arthroplasty Patient Condition at Discharge: Good Plan - Discharge Summary Discharge Rx Participant: Yes New Discharge Prescriptions: New Aspirin [Adult Low Dose Aspirin EC] 81 mg PO BID #60 tablet.dr Continue Omeprazole [PriLOSEC] 20 mg PO BID Sertraline [Zoloft] 125 mg PO HS Ondansetron [Zofran] 4 mg PO BID PRN PRN Reason: Nausea Hyoscyamine Sulfate [Levsin] 0.125 mg SL Q4H PRN PRN Reason: Spasms Morphine Sulfate ER [Ms Contin] 30 mg PO BID HYDROcodone/APAP 10-325MG [Martin 10-325] 1 tab PO BID PRN PRN Reason: Pain Hydroxychloroquine Sulfate [Plaquenil] 200 mg PO BID Vitamin E (Dl,Tocopheryl Acet) [Vitamin E] 400 unit PO DAILY Cholecalciferol (Vitamin D3) [Vitamin D3] 2,000 unit PO HS Baclofen [Lioresal] 20 mg PO BID PRN PRN Reason: Pain Aspirin/Acetaminophen/Caffeine [Excedrin Extra Strength Caplet] 1 each PO DIRECTED PRN PRN Reason: Headache Ascorbic Acid [Vitamin C] 1,000 mg PO DAILY Biotin 5,000 mcg PO HS Discharge Medication List Omeprazole [PriLOSEC] 20 mg PO BID 01/14/14 [History] Sertraline [Zoloft] 125 mg PO HS 05/18/14 [History] Hyoscyamine Sulfate [Levsin] 0.125 mg SL Q4H PRN 10/31/17 [History] Ondansetron [Zofran] 4 mg PO BID PRN 10/31/17 [History] Morphine Sulfate ER [Ms Contin] 30 mg PO BID 11/12/17 [History] HYDROcodone/APAP 10-325MG [Martin 10-325] 1 tab PO BID PRN 03/24/19 [History] Hydroxychloroquine Sulfate [Plaquenil] 200 mg PO BID 03/24/19 [History] Aspirin/Acetaminophen/Caffeine [Excedrin Extra Strength Caplet] 1 each PO DIRECTED PRN 06/22/19 [History] Baclofen [Lioresal] 20 mg PO BID PRN 06/22/19 [History] Cholecalciferol (Vitamin D3) [Vitamin D3] 2,000 unit PO HS 06/22/19 [History] Vitamin E (Dl,Tocopheryl Acet) [Vitamin E] 400 unit PO DAILY 06/22/19 [History] Ascorbic Acid [Vitamin C] 1,000 mg PO DAILY 08/10/19 [History] Biotin 5,000 mcg PO HS 08/10/19 [History] Aspirin [Adult Low Dose Aspirin EC] 81 mg PO BID #60 tablet. 01/20/20 [Rx] Follow up Appointment(s)/Referral(s): [facility], [NON-STAFF] - ([facility] will contact you by tomorrow afternoon to arrange first visit. ) Daryl Ley PAC [[employer]] - 02/10/20 2:50 pm Gilberto Arreguin DO [Primary Care Provider] - 1 Week Activity/Diet/Wound Care/Special Instructions: Orthopedic Discharge Instructions: 1. Wound care and infection precautions, keep incision dry and covered while showering, no lotions, creams, moisturizers. No soaking, pools, hot tubs. Do not scrub over incision. 2. Weight-bear as tolerated with walker / cane until follow-up. 3. Ice and elevate when necessary. Do not exceed 20 minutes per hour with ice pack. 4. Utilize compression sleeve until seen at first follow up appointment. 5. Pain meds and anticoagulants per prescription. 6. Pain medication has potential to cause constipation. Increase oral fluid and fiber intake. Contact primary care provider if you have not had a bowel movement within 48 hours after discharge. 7. No anti-inflammatory medication until discussed at first post operative visit, this including Motrin, Aleve, Mobic, Diclofenac. 8. Follow up in office at 2 weeks postop with Julio C Ley PA-C 9. Follow up with your primary care doctor 7-10 days after discharge. 10. Contact [facility] with any questions, [phone]. 11. *Please call [facility] once home to arrange delivery of Continuous Passive Motion (CPM) machine: [phone]* Discharge Disposition: HOME WITH HOME HEALTH SERVICES
== END 2020-01-20 13:40 | disposition home health service (06) ==
LOC: OR 06:21 → 4SSUR 14:19 → OR 01-20 13:40
PROVIDERS: ATTEND Orthopaedic Surgery
DX: M17.11 Unilateral primary osteoarthritis, right knee (principal); K21.9 Gastro-esophageal reflux disease without esophagitis; M32.9 Systemic lupus erythematosus, unspecified; G62.9 Polyneuropathy, unspecified; F17.210 Nicotine dependence, cigarettes, uncomplicated; F32.9 Major depressive disorder, single episode, unspecified; H46.9 Unspecified optic neuritis; E78.2 Mixed hyperlipidemia; F41.1 Generalized anxiety disorder; E55.9 Vitamin D deficiency, unspecified; M54.9 Dorsalgia, unspecified; G89.29 Other chronic pain; Z88.2 Allergy status to sulfonamides; Z88.5 Allergy status to narcotic agent; Z88.0 Allergy status to penicillin; Z88.1 Allergy status to other antibiotic agents; Z87.442 Personal history of urinary calculi; Z87.19 Personal history of other diseases of the digestive system; Z79.891 Long term (current) use of opiate analgesic; Z79.899 Other long term (current) drug therapy; Z90.89 Acquired absence of other organs; Z90.49 Acquired absence of other specified parts of digestive tract; Z98.890 Other specified postprocedural states; Z98.891 History of uterine scar from previous surgery; Z82.0 Family history of epilepsy and other diseases of the nervous system; Z82.49 Family history of ischemic heart disease and other diseases of the circulatory system; Z80.9 Family history of malignant neoplasm, unspecified
CPT/HCPCS: 93005; 97110; 97161; 64448; 76942; 85025; 88300; 73560; 27447; C1713; C1776; J2250; J0171; J1200; J1100; J2765; J0690 ×2; J2405; J1885; J1650 ×2; J2795 ×2; J2704; J0735; J1170 ×2

== ENCOUNTER → 2021-01-27 | Outpatient (CLI) | payer MEDICARE, OTHER ==
--- NOTE | 2021-01-31 08:09 | MM ---
Reason for exam: screening (asymptomatic). Last mammogram was performed 5 years and 7 months ago. History: Patient is postmenopausal. Physical Findings: A clinical breast exam by your physician is recommended on an annual basis and results should be correlated with mammographic findings. MG 3D Screening Mammo W/Cad Bilateral CC and MLO view(s) were taken. Prior study comparison: July 14, 2015, bilateral MG 3d screening mammo w/cad. October 21, 2013, bilateral MG screening mammo w CAD. The breast tissue is heterogeneously dense. This may lower the sensitivity of mammography. No significant changes when compared with prior studies. ASSESSMENT: Negative, BI-RAD 1 RECOMMENDATION: Routine screening mammogram of both breasts in 1 year. Patient should continue monthly self breast exams. A negative report should not preclude additional follow up of suspicious palpable abnormalities.
== END | disposition home or self-care (01) ==
LOC: RADMAMWWP 14:35
PROVIDERS: ATTEND Family Medicine
DX: Z12.31 Encounter for screening mammogram for malignant neoplasm of breast (principal)
CPT/HCPCS: 77063; 77067

== ENCOUNTER 2023-11-06 10:35 | Day surgery (SDC) | payer MEDICARE, OTHER ==
[2023-11-06] MEDS: IV FLUID CONTINUATION 1,000 ML IV ONE (11:16)
[2023-11-06] MEDS: LACTATED RINGERS 1,000 ML BAG IV STA (11:16)
[2023-11-06 11:42] VITALS: TEMP 97.7
[2023-11-06] MEDS ORDERED: PROPOFOL 10 MG/ML 20 ML VIAL IV ONE (12:37)
--- NOTE | 2023-11-06 12:56 | P.PCN ---
Date of Procedure: 11/06/23 Procedure(s) Performed: BRIEF HISTORY: Patient is a 58-year-old pleasant white female scheduled for an elective colonoscopy as a part of evaluation by history of colon polyps. Last colonoscopy was 5 years ago. PROCEDURE PERFORMED: Colonoscopy with snare polypectomy. PREOPERATIVE DIAGNOSIS: History of colon polyps. IV sedation per Anesthesia. PROCEDURE: After informed consent was obtained, the patient, was brought into the endoscopy unit. IV sedation was administered by Anesthesia under continuous monitoring. Digital rectal examination was normal. Initially the Olympus CF-160 flexible video colonoscope was then inserted in the rectum, gradually advanced into the cecum without any difficulty. Careful examination was performed as the scope was gradually being withdrawn. Ileocecal valve and the appendiceal orifice were visualized and appeared normal. Prep was fair.. Mucosa of the cecum, ap peared normal. In the ascending colon there was a 7 mm polyp that was removed by snare polypectomy. Rest of the ascending colon, transverse colon, descending colon, appeared normal. There was anastomosis located in the proximal rectum at 18 cm from the anal verge. Just distal to the anastomosis there was a 1 cm polyp that was removed by snare polypectomy. Mucosa of the rectum appeared normal. Retroflexion was performed in the rectum and no lesions were seen. The patient tolerated the procedure well. IMPRESSION: 7 mm ascending colon polyp status post snare polypectomy 1 cm proximal rectal polyp status post polypectomy Rest of the colon appeared normal RECOMMENDATIONS: Findings of this examination were discussed with the patient as well as his family. She was advised to follow-up with the biopsy results. If the biopsy reveals adenoma she can have repeat colonoscopy 3 years.
[2023-11-06 13:33] VITALS: BP 111/75; PULSE 73; RESP 16
== END 2023-11-06 14:05 | disposition home or self-care (01) ==
LOC: ORWHC2ENDO 10:35
PROVIDERS: ATTEND Internal Medicine Gastroenterology
DX: Z12.11 Encounter for screening for malignant neoplasm of colon (principal); D12.2 Benign neoplasm of ascending colon; K62.1 Rectal polyp; K21.9 Gastro-esophageal reflux disease without esophagitis; G62.9 Polyneuropathy, unspecified; F41.9 Anxiety disorder, unspecified; F32.A Depression, unspecified; M32.9 Systemic lupus erythematosus, unspecified; F12.90 Cannabis use, unspecified, uncomplicated; Z86.010 Personal history of colon polyps; Z88.2 Allergy status to sulfonamides; Z79.899 Other long term (current) drug therapy
CPT/HCPCS: 88305; 45385; J2704